=== PATIENT | male | born 1950 | race Caucasian/White ===

== ENCOUNTER 2017-10-24 10:29 | Inpatient (IN) | payer MEDICARE, OTHER ==
--- NOTE | 2017-10-24 13:11 | CR ---
Chest 2V INDICATION: sob COMPARISON: 10/19/2017 FINDINGS: Two views. Infiltrate at the left lung base. Somewhat shallow inspiration. Heart size no rmal. No pleural effusions.
[2017-10-24] MEDS ORDERED: Albuterol 0.083% 2.5 MG/3 ML Neb Soln NEB ONE (14:15)
[2017-10-24] MEDS ORDERED: Sodium Chloride 0.9% 80 ML IV ONE (15:25)
[2017-10-24] MEDS ORDERED: Iopamidol 755 Mg/ML 100 ML Bottle IV SCH (15:30)
[2017-10-24] MEDS: Sodium Chloride 0.9% 10 ML Syringe FLUSH ONE ×2 (15:58→18:44)
--- NOTE | 2017-10-24 16:00 | EDM.PDOC ---
ED HPI GENERAL MEDICAL PROBLEM - General Chief Complaint: Cardiovascular Problem Stated Complaint: SHORTNESS OF BREATH Time Seen by Provider: 10/24/17 11:40 Source of Information: Reports: Patient History Limitations: Reports: No Limitations - History of Present Illness INITIAL COMMENTS - FREE TEXT/NARRATIVE: pt arrived with increased sob and alot of leg swelling. He was recently put on o2 at 1 liter. Onset: Gradual, Other ( His breathing has been getting worse. He has not had chest pain. ) Duration: Day(s):, Getting Worse Location: Reports: Chest Associated Symptoms: Reports: Cough, Shortness of Breath, Other ( Increased ankle swelling. ) Generalized Pain Score (Numeric/FACES): 9 - Related Data Allergies Allergy/AdvReac Type Severity Reaction Status Date / Time No Known Allergies Allergy Verified 10/24/17 11:55 Home Meds: Home Meds Aspirin [Adult Low Dose Aspirin EC] 81 mg PO DAILY 08/03/15 [History] Cholecalciferol (Vitamin D3) [Vitamin D] 2,000 unit PO DAILY 08/03/15 [History] Lisinopril 40 mg PO DAILY 08/03/15 [History] amLODIPine [Norvasc] 5 mg PO DAILY 08/03/15 [History] glipiZIDE [Glipizide] 10 mg PO BID 08/03/15 [History] metFORMIN [Glucophage XR] 1,000 mg PO BID 08/03/15 [History] Carvedilol [Coreg] 6.25 mg PO BID 06/30/16 [History] Clopidogrel [Plavix] 75 mg PO DAILY 06/30/16 [History] Furosemide [Lasix] 20 mg PO DAILY 06/30/16 [History] atorvaSTATin [Lipitor] 40 mg PO BEDTIME 06/30/16 [History] Past Medical History Cardiovascular History: Reports: Hypertension Endocrine/Metabolic History: Reports: Diabetes, Type II Hematologic History: Reports: Other (See Below) Other Hematologic History: Vitamin D definiency Dermatologic History: Reports: Psoriasis - Past Surgical History Musculoskeletal Surgical History: Reports: Arthroscopic Knee Social & Family History - Tobacco Use Smoking Status *Q: Unknown Ever Smoked ED ROS GENERAL - Review of Systems Review Of Systems: See Below Constitutional: Reports: No Symptoms HEENT: Reports: No Symptoms Respiratory: Reports: Shortness of Breath, Cough, Other ( increass ankle swelling. ) Cardiovascular: Reports: No Symptoms Endocrine: Reports: No Symptoms GI/Abdominal: Reports: No Symptoms : Reports: No Symptoms Musculoskeletal: Reports: No Symptoms ED EXAM, GENERAL - Physical Exam Exam: See Below Free Text/Narrative:: pt has had progressive sob and has noted ankle swelling. He has no leg tendernes. Exam Limited By: Respiratory Distress General Appearance: Moderate Distress Ears: Normal TMs Nose: Normal Inspection Throat/Mouth: Normal Inspection Head: Atraumatic Neck: Normal Inspection Respiratory/Chest: Decreased Breath Sounds, Rales Cardiovascular: Regular Rate, Rhythm GI/Abdominal: Soft, Non-Tender (Male) Exam: Deferred Rectal (Males) Exam: Deferred Back Exam: Normal Inspection Extremities: Redness, Other ( edema bilateral) Neurological: Alert, Oriented, Normal Cognition Psychiatric: Normal Affect Course - Vital Signs Last Recorded V/S: Last Vital Signs Temp 36.4 C 10/24/17 11:50 Pulse 77 10/24/17 16:40 Resp 13 10/24/17 16:40 BP 143/73 H 10/24/17 16:40 Pulse Ox 87 L 10/24/17 16:40 - Orders/Labs/Meds Orders: Active Orders 24 hr Category Date Time Status EKG Documentation Completion [RC] ASDIRECTED Care 10/24/17 11:31 Active Wren Catheter Insertion [Insert Urinary Catheter] [OM. Care 10/24/17 13:00 Ordered PC] Q24H RT Aerosol Therapy [RC] ASDIRECTED Care 10/24/17 14:16 Active Urinary Catheter Assessment [RC] ASDIRECTED Care 10/24/17 12:54 Active Ang Chest [CT] Stat Exams 10/24/17 15:08 Taken UA W/MICROSCOPIC [URIN] Urgent Lab 10/24/17 12:03 Ordered Iopamidol [Isovue-370 (76%)] Med 10/24/17 15:30 Active 85 ml IV . DIRECTED EKG 12 Lead [EK] Routine Ther 10/24/17 11:31 Ordered Medication Orders Iopamidol (Isovue-370 (76%)) 85 ml IV . DIRECTED NOEMY Stop: 10/24/17 23:00 Last Admin: 10/24/17 15:58 Dose: 85 ml Labs: Laboratory Tests 10/24/17 10/24/17 10/24/17 Range/Units 11:47 11:47 12:03 WBC 8.8 (4.5-11.0) K/uL RBC 4.85 (4.30-5.90) M/uL Hgb 15.2 H (12.0-15.0) g/dL Hct 46.9 (40.0-54.0) % MCV 97 (80-98) fL MCH 31 (27-31) pg MCHC 32 (32-36) % Plt Count 226 (150-400) K/uL Neut % (Auto) 72 H (36-66) % Lymph % (Auto) 14 L (24-44) % [place] % (Auto) 10 H (2-6) % Eos % (Auto) 4 (2-4) % Baso % (Auto) 1 (0-1) % Puncture Site ABG pH (7.350-7.450) ABG pCO2 (35.0-42.0) mmHg ABG pO2 (75.0-100.0) mmHg ABG HCO3 (22.0-26.0) mmol/L ABG Total CO2 (23.0-27.0) mmol/L ABG O2 Saturation (95.0-98.0) % ABG O2 Content (15.0-23.0) %vol ABG Base Excess mm/L ABG Hemoglobin (13.5-18.0) g/dL ABG Oxyhemoglobin % ABG Carboxyhemoglobin (0.0-1.6) % ABG Methemoglobin % Morris Test O2 Delivery Device Oxygen Flow Rate L Sodium 138 L (140-148) mmol/L Potassium 4.2 (3.6-5.2) mmol/L Chloride 93 L (100-108) mmol/L Carbon Dioxide 42 H (21-32) mmol/L Anion Gap 7.2 (5.0-14.0) mmol/L BUN 15 D (7-18) mg/dL Creatinine 0.9 (0.8-1.3) mg/dL Est Cr Clr Drug Dosing 78.56 mL/min Estimated GFR (MDRD) > 60 (>60) Glucose 184 H (74-106) mg/dL Calcium 9.2 D (8.5-10.1) mg/dL Total Bilirubin 0.7 (0.2-1.0) mg/dL AST 18 (15-37) U/L ALT 27 (12-78) U/L Alkaline Phosphatase 108 (46-116) U/L NT-Pro-B Natriuret Pep 65 (5-125) pg/mL Total Protein 7.3 (6.4-8.2) g/dL Albumin 3.8 (3.4-5.0) g/dL Globulin 3.5 (2.3-3.5) g/dL Albumin/Globulin Ratio 1.1 L (1.2-2.2) TSH, Ultra Sensitive (0.358-3.740) uIU/mL Urine Color Yellow Urine Appearance Cloudy Urine pH 9.0 H (4.5-8.0) Ur Specific [place] 1.015 (1.008-1.030) Urine Protein Negative (NEGATIVE) mg/dL Urine Glucose (UA) 50 H (NEGATIVE) mg/dL Urine Ketones Negative (NEGATIVE) mg/dL Urine Occult Blood Negative (NEGATIVE) Urine Nitrite Negative (NEGAITVE) Urine Bilirubin Negative (NEGATIVE) Urine Urobilinogen Normal (NORMAL) mg/dL Ur Leukocyte Esterase Negative (NEGATIVE) Urine RBC Not seen (0-5) Urine WBC Not seen (0-5) Ur Epithelial Cells Not seen Amorphous Sediment Many Urine Bacteria Not seen Urine Mucus Not seen 10/24/17 10/24/17 Range/Units 12:51 13:43 WBC (4.5-11.0) K/uL RBC (4.30-5.90) M/uL Hgb (12.0-15.0) g/dL Hct (40.0-54.0) % MCV (80-98) fL MCH (27-31) pg MCHC (32-36) % Plt Count (150-400) K/uL Neut % (Auto) (36-66) % Lymph % (Auto) (24-44) % [place] % (Auto) (2-6) % Eos % (Auto) (2-4) % Baso % (Auto) (0-1) % Puncture Site Lt radial ABG pH 7.396 (7.350-7.450) ABG pCO2 66.4 H (35.0-42.0) mmHg ABG pO2 67.0 L (75.0-100.0) mmHg ABG HCO3 39.9 H (22.0-26.0) mmol/L ABG Total CO2 34.6 H (23.0-27.0) mmol/L ABG O2 Saturation 92.2 L (95.0-98.0) % ABG O2 Content 19.6 (15.0-23.0) %vol ABG Base Excess 11.9 mm/L ABG Hemoglobin 15.4 (13.5-18.0) g/dL ABG Oxyhemoglobin 90.5 % ABG Carboxyhemoglobin 1.2 (0.0-1.6) % ABG Methemoglobin 0.6 % Morris Test Passed O2 Delivery Device Nasal cannula Oxygen Flow Rate 2 L Sodium (140-148) mmol/L Potassium (3.6-5.2) mmol/L Chloride (100-108) mmol/L Carbon Dioxide (21-32) mmol/L Anion Gap (5.0-14.0) mmol/L BUN (7-18) mg/dL Creatinine (0.8-1.3) mg/dL Est Cr Clr Drug Dosing mL/min Estimated GFR (MDRD) (>60) Glucose (74-106) mg/dL Calcium (8.5-10.1) mg/dL Total Bilirubin (0.2-1.0) mg/dL AST (15-37) U/L ALT (12-78) U/L Alkaline Phosphatase (46-116) U/L NT-Pro-B Natriuret Pep (5-125) pg/mL Total Protein (6.4-8.2) g/dL Albumin (3.4-5.0) g/dL Globulin (2.3-3.5) g/dL Albumin/Globulin Ratio (1.2-2.2) TSH, Ultra Sensitive 3.827 H (0.358-3.740) uIU/mL Urine Color Urine Appearance Urine pH (4.5-8.0) Ur Specific [place] (1.008-1.030) Urine Protein (NEGATIVE) mg/dL Urine Glucose (UA) (NEGATIVE) mg/dL Urine Ketones (NEGATIVE) mg/dL Urine Occult Blood (NEGATIVE) Urine Nitrite (NEGAITVE) Urine Bilirubin (NEGATIVE) Urine Urobilinogen (NORMAL) mg/dL Ur Leukocyte Esterase (NEGATIVE) Urine RBC (0-5) Urine WBC (0-5) Ur Epithelial Cells Amorphous Sediment Urine Bacteria Urine Mucus Meds: Medications Generic Name Dose Route Start Last Admin Trade Name Freq PRN Reason Stop Dose Admin Iopamidol 85 ml 10/24/17 15:30 10/24/17 15:58 Isovue-370 (76%) IV 10/24/17 23:00 85 ml . DIRECTED NOEMY Administration Discontinued Medications Generic Name Dose Route Start Last Admin Trade Name [place] PRN Reason Stop Dose Admin Albuterol 2.5 mg 10/24/17 14:15 10/24/17 15:07 Proventil Neb Soln NEB 10/24/17 14:16 2.5 mg ONETIME ONE Administration Sodium Chloride 80 mls @ 3.5 mls/sec 10/24/17 15:25 10/24/17 15:58 Normal Saline IV 10/24/17 15:26 3.5 mls/sec ONETIME ONE Administration Sodium Chloride 10 ml 10/24/17 15:25 10/24/17 15:58 Saline Flush FLUSH 10/24/17 15:26 10 ml ONETIME ONE Administration - Re-Assessments/Exams Free Text/Narrative Re-Assessment/Exam: 10/24/17 17:18 bnp is normal. Chest xray show possible infiltrates particularly on the left. A cat scan of the chest was done which showed the infiltrates but no clots present. Departure - Departure Time of Disposition: 17:20 Disposition: Admitted As Inpatient 65 Condition: Fair Clinical Impression: Bilateral pneumonia, Fluid retention, Urinary retention Referrals: Shreya Ventura PA [Primary Care Provider] - Forms: ED Department Discharge Care Plan Goals: admit to Dr justin. - My Orders Last 24 Hours: My Active Orders 10/24/17 11:31 EKG Documentation Completion [RC] ASDIRECTED EKG 12 Lead [EK] Routine 10/24/17 12:03 UA W/MICROSCOPIC [URIN] Urgent 10/24/17 12:54 Urinary Catheter Assessment [RC] ASDIRECTED 10/24/17 13:00 Wren Catheter Insertion [Insert Urinary Catheter] [OM.PC] Q24H 10/24/17 14:16 RT Aerosol Therapy [RC] ASDIRECTED 10/24/17 15:08 Ang Chest [CT] Stat 10/24/17 15:30 Iopamidol [Isovue-370 (76%)] 85 ml IV . DIRECTED - Assessment/Plan Last 24 Hours: My Active Orders 10/24/17 11:31 EKG Documentation Completion [RC] ASDIRECTED EKG 12 Lead [EK] Routine 10/24/17 12:03 UA W/MICROSCOPIC [URIN] Urgent 10/24/17 12:54 Urinary Catheter Assessment [RC] ASDIRECTED 10/24/17 13:00 Wren Catheter Insertion [Insert Urinary Catheter] [OM.PC] Q24H 10/24/17 14:16 RT Aerosol Therapy [RC] ASDIRECTED 10/24/17 15:08 Ang Chest [CT] Stat 10/24/17 15:30 Iopamidol [Isovue-370 (76%)] 85 ml IV . DIRECTED
[2017-10-24] MEDS ORDERED: Furosemide 40 MG/4 ML VIAL IVPUSH ONE (17:44)
--- NOTE | 2017-10-24 17:58 | PCM.HP ---
H&P History of Present Illness - General Date of Service: 10/24/17 Admit Problem/Dx: Admission Diagnosis/Problem Admission Diagnosis/Problem Systolic CHF with reduced left ventricular function, NYHA class 2 Source of Information: Patient, Provider History Limitations: Reports: No Limitations - History of Present Illness Initial Comments - Free Text/Narative: Timi presents to the ER today with 6 weeks of slowly progressive weight gain and shortness of breath with a more rapid decompensation over the last several days. He reports approximately a 20 pound weight gain over the past several weeks. He has become more and more short of breath, especially with activity. Last week he was started on supplemental oxygen after he was noted to be hypoxic at his clinic visit. He does not report orthopnea but he does sleep in a chair. He has noticed significant lower extremity edema which has progressed over the past 6 weeks and especially the past few days. He has bloating in his abdomen and early satiety. He reports that he has significantly reduced his sodium and alcohol intake without any improvement in the symptoms. He has not had any fevers. Diabetes has been well controlled per his report. He was seen in the clinic last week and the weight gain and hypoxia was noted. I will this time his furosemide was increased slightly but he has not had any improvement and has actually gotten worse since that time. Examination in the emergency room today and was suggestive of congestive heart failure. He is hypoxic and requiring supplemental oxygen. He will need admission for parenteral diuresis and additional workup including echocardiogram. He had a Wren catheter placed for acute urinary retention. Generalized Pain Score (Numeric/FACES): 9 - Related Data Allergies/Adverse Reactions: Allergies Allergy/AdvReac Type Severity Reaction Status Date / Time No Known Allergies Allergy Verified 10/24/17 11:55 Home Medications: Home Meds Aspirin [Adult Low Dose Aspirin EC] 81 mg PO DAILY 08/03/15 [History] Lisinopril 40 mg PO DAILY 08/03/15 [History] amLODIPine [Norvasc] 5 mg PO DAILY 08/03/15 [History] glipiZIDE [Glipizide] 20 mg PO BID 08/03/15 [History] metFORMIN [Glucophage XR] 1,000 mg PO BID 08/03/15 [History] Carvedilol [Coreg] 6.25 mg PO BID 06/30/16 [History] Clopidogrel [Plavix] 75 mg PO DAILY 06/30/16 [History] Furosemide [Lasix] 60 mg PO DAILY 06/30/16 [History] atorvaSTATin [Lipitor] 40 mg PO DAILY 06/30/16 [History] Past Medical History Cardiovascular History: Reports: Hypertension Endocrine/Metabolic History: Reports: Diabetes, Type II Hematologic History: Reports: Other (See Below) Other Hematologic History: Vitamin D definiency Dermatologic History: Reports: Psoriasis - Past Surgical History Musculoskeletal Surgical History: Reports: Arthroscopic Knee Social & Family History - Family History Oncologic: Reports: Lung (father) - Tobacco Use Smoking Status *Q: Former Smoker Years of Tobacco use: 35 Used Tobacco, but Quit: Yes Month/Year Tobacco Last Used: 10 years ago - Alcohol Use Alcohol Use History: Yes Days Per Week of Alcohol Use: 3 H&P Review of Systems - Review of Systems: Review Of Systems: See Below Free Text/Narrative: A complete 12 point review of systems was obtained. Pertinent positives and negatives are noted in the history of present illness. All other systems were reviewed and were negative except as noted. Exam - Exam Exam: See Below - Vital Signs Vital Signs: Last Vital Signs Temp 36.4 C 10/24/17 11:50 Pulse 80 10/24/17 17:33 Resp 18 10/24/17 17:33 BP 159/62 H 10/24/17 17:33 Pulse Ox 90 L 10/24/17 17:33 Weight: 117.934 kg - Exam Quality Assessment: Supplemental Oxygen General: Alert, Oriented, Cooperative. No: Mild Distress HEENT: Conjunctiva Clear, Mucosa Moist & [place]. No: Scleral Icterus Neck: Supple, Trachea Midline, JVD. No: Lymphadenopathy Lungs: Normal Respiratory Effort, Decreased Breath Sounds (both bases), Crackles (few both bases) Cardiovascular: Regular Rate, Regular Rhythm. No: Systolic Murmur, Gallop/S3 GI/Abdominal Exam: Normal Bowel Sounds, Soft, Non-Tender, No Mass, Distended Back Exam: Normal Inspection, Full Range of Motion Extremities: Pedal Edema (pitting edema to the knee bilaterally, right > left ) . No: Increased Warmth Skin: Warm, Dry, Rash (mild venous stasis right anterior leg ) Neuro Extensive - Mental Status: Alert, Oriented x3, Nl Response to Commands Neuro Extensive - Motor, Sensory, Reflexes: CN II-XII Intact. No: Dysarthria, Abnormal Motor, Tremor Psychiatric: Alert, Normal Affect - Patient Data Lab Results Last 24 hrs: Laboratory Results - last 24 hr 10/24/17 10/24/17 10/24/17 Range/Units 11:47 11:47 12:03 WBC 8.8 (4.5-11.0) K/uL RBC 4.85 (4.30-5.90) M/uL Hgb 15.2 H (12.0-15.0) g/dL Hct 46.9 (40.0-54.0) % MCV 97 (80-98) fL MCH 31 (27-31) pg MCHC 32 (32-36) % Plt Count 226 (150-400) K/uL Neut % (Auto) 72 H (36-66) % Lymph % (Auto) 14 L (24-44) % [place] % (Auto) 10 H (2-6) % Eos % (Auto) 4 (2-4) % Baso % (Auto) 1 (0-1) % Puncture Site ABG pH (7.350-7.450) ABG pCO2 (35.0-42.0) mmHg ABG pO2 (75.0-100.0) mmHg ABG HCO3 (22.0-26.0) mmol/L ABG Total CO2 (23.0-27.0) mmol/L ABG O2 Saturation (95.0-98.0) % ABG O2 Content (15.0-23.0) %vol ABG Base Excess mm/L ABG Hemoglobin (13.5-18.0) g/dL ABG Oxyhemoglobin % ABG Carboxyhemoglobin (0.0-1.6) % ABG Methemoglobin % Morris Test O2 Delivery Device Oxygen Flow Rate L Sodium 138 L (140-148) mmol/L Potassium 4.2 (3.6-5.2) mmol/L Chloride 93 L (100-108) mmol/L Carbon Dioxide 42 H (21-32) mmol/L Anion Gap 7.2 (5.0-14.0) mmol/L BUN 15 D (7-18) mg/dL Creatinine 0.9 (0.8-1.3) mg/dL Est Cr Clr Drug Dosing 78.56 mL/min Estimated GFR (MDRD) > 60 (>60) Glucose 184 H (74-106) mg/dL Calcium 9.2 D (8.5-10.1) mg/dL Total Bilirubin 0.7 (0.2-1.0) mg/dL AST 18 (15-37) U/L ALT 27 (12-78) U/L Alkaline Phosphatase 108 (46-116) U/L NT-Pro-B Natriuret Pep 65 (5-125) pg/mL Total Protein 7.3 (6.4-8.2) g/dL Albumin 3.8 (3.4-5.0) g/dL Globulin 3.5 (2.3-3.5) g/dL Albumin/Globulin Ratio 1.1 L (1.2-2.2) TSH, Ultra Sensitive (0.358-3.740) uIU/mL Urine Color Yellow Urine Appearance Cloudy Urine pH 9.0 H (4.5-8.0) Ur Specific [place] 1.015 (1.008-1.030) Urine Protein Negative (NEGATIVE) mg/dL Urine Glucose (UA) 50 H (NEGATIVE) mg/dL Urine Ketones Negative (NEGATIVE) mg/dL Urine Occult Blood Negative (NEGATIVE) Urine Nitrite Negative (NEGAITVE) Urine Bilirubin Negative (NEGATIVE) Urine Urobilinogen Normal (NORMAL) mg/dL Ur Leukocyte Esterase Negative (NEGATIVE) Urine RBC Not seen (0-5) Urine WBC Not seen (0-5) Ur Epithelial Cells Not seen Amorphous Sediment Many Urine Bacteria Not seen Urine Mucus Not seen 10/24/17 10/24/17 Range/Units 12:51 13:43 WBC (4.5-11.0) K/uL RBC (4.30-5.90) M/uL Hgb (12.0-15.0) g/dL Hct (40.0-54.0) % MCV (80-98) fL MCH (27-31) pg MCHC (32-36) % Plt Count (150-400) K/uL Neut % (Auto) (36-66) % Lymph % (Auto) (24-44) % [place] % (Auto) (2-6) % Eos % (Auto) (2-4) % Baso % (Auto) (0-1) % Puncture Site Lt radial ABG pH 7.396 (7.350-7.450) ABG pCO2 66.4 H (35.0-42.0) mmHg ABG pO2 67.0 L (75.0-100.0) mmHg ABG HCO3 39.9 H (22.0-26.0) mmol/L ABG Total CO2 34.6 H (23.0-27.0) mmol/L ABG O2 Saturation 92.2 L (95.0-98.0) % ABG O2 Content 19.6 (15.0-23.0) %vol ABG Base Excess 11.9 mm/L ABG Hemoglobin 15.4 (13.5-18.0) g/dL ABG Oxyhemoglobin 90.5 % ABG Carboxyhemoglobin 1.2 (0.0-1.6) % ABG Methemoglobin 0.6 % Morris Test Passed O2 Delivery Device Nasal cannula Oxygen Flow Rate 2 L Sodium (140-148) mmol/L Potassium (3.6-5.2) mmol/L Chloride (100-108) mmol/L Carbon Dioxide (21-32) mmol/L Anion Gap (5.0-14.0) mmol/L BUN (7-18) mg/dL Creatinine (0.8-1.3) mg/dL Est Cr Clr Drug Dosing mL/min Estimated GFR (MDRD) (>60) Glucose (74-106) mg/dL Calcium (8.5-10.1) mg/dL Total Bilirubin (0.2-1.0) mg/dL AST (15-37) U/L ALT (12-78) U/L Alkaline Phosphatase (46-116) U/L NT-Pro-B Natriuret Pep (5-125) pg/mL Total Protein (6.4-8.2) g/dL Albumin (3.4-5.0) g/dL Globulin (2.3-3.5) g/dL Albumin/Globulin Ratio (1.2-2.2) TSH, Ultra Sensitive 3.827 H (0.358-3.740) uIU/mL Urine Color Urine Appearance Urine pH (4.5-8.0) Ur Specific [place] (1.008-1.030) Urine Protein (NEGATIVE) mg/dL Urine Glucose (UA) (NEGATIVE) mg/dL Urine Ketones (NEGATIVE) mg/dL Urine Occult Blood (NEGATIVE) Urine Nitrite (NEGAITVE) Urine Bilirubin (NEGATIVE) Urine Urobilinogen (NORMAL) mg/dL Ur Leukocyte Esterase (NEGATIVE) Urine RBC (0-5) Urine WBC (0-5) Ur Epithelial Cells Amorphous Sediment Urine Bacteria Urine Mucus Result Diagrams: 10/24/17 11:47 10/24/17 11:47 Imaging Impressions Last 24 hrs: CXR - images personally reviewed - plump pulmonary vasculature but no effusions. No mass or infiltrate. Probable bibasilar atelectasis. CT chest - no PE. bilateral atelectasis. No effusion. Engorged pulmonary vasculature. No mass. *Q Meaningful Use (ADM) - VTE Risk Assess *Q Each Risk Factor Represents 1 Point: Swollen Legs, Current, Obesity ( BMI > 25 kg/m2), Congestive heart failure (CHF), Abnormal Pulmonary Function (COPD) Total Score 1 Point Risk Factors: 4 Each Risk Factor Represents 2 Points: Age 60 - 74 Years Total Score 2 Point Risk Factors: 2 Each Risk Factor Represents 3 Points: None Total Score 3 Point Risk Factors: 0 Each Risk Factor Represents 5 Points: None Total Score 5 Point Risk Factors: 0 Venous Thromboembolism Risk Factor Score *Q: 6 - Problem List (1) Combined congestive systolic and diastolic heart failure SNOMED Code(s): 00108649, 690071736 ICD Code: I50.40 - UNSP COMBINED SYSTOLIC AND DIASTOLIC (CONGESTIVE) HRT FAIL Status: Acute Current Visit: Yes Qualifiers: Heart failure chronicity: acute on chronic Qualified Code(s): I50.43 - Acute on chronic combined systolic (congestive) and diastolic (congestive) heart failure (2) Urinary retention SNOMED Code(s): 977651950 ICD Code: R33.9 - RETENTION OF URINE, UNSPECIFIED Status: Acute Current Visit: Yes (3) Diabetes mellitus type II, controlled SNOMED Code(s): 46071152 ICD Code: E11.9 - TYPE 2 DIABETES MELLITUS WITHOUT COMPLICATIONS Status: Chronic Current Visit: Yes Qualifiers: Diabetes mellitus manager intermediate insulin use: without group home use Diabetes mellitus complication status: with unspecified complications Qualified Code(s) : E11.8 - Type 2 diabetes mellitus with unspecified complications (4) Obesity (BMI 30-39.9) SNOMED Code(s): 079235680, 883422166 ICD Code: E66.9 - OBESITY, UNSPECIFIED Status: Chronic Current Visit: Yes (5) Coronary artery disease SNOMED Code(s): 32315810 ICD Code: I25.10 - ATHSCL HEART DISEASE OF [place] CORONARY ARTERY W/O ANG PCTRS Status: Chronic Current Visit: Yes Qualifiers: Coronary Disease-Associated Artery/Lesion type: [place] artery [place] vs. transplanted heart: [place] heart Associated angina: without angina Qualified Code(s): I25.10 - Atherosclerotic heart disease of [place] coronary artery without angina pectoris Problem List Initiated/Reviewed/Updated: Yes Orders Last 24hrs: Active Orders 24 hr Category Date Time Status Patient Status Manage Transfer [TRANSFER] Routine ADT 10/24/17 17:45 Ordered EKG Documentation Completion [RC] ASDIRECTED Care 10/24/17 11:31 Active Wren Catheter Insertion [Insert Urinary Catheter] [OM. Care 10/24/17 13:00 Ordered PC] Q24H RT Aerosol Therapy [RC] ASDIRECTED Care 10/24/17 14:16 Active Urinary Catheter Assessment [RC] ASDIRECTED Care 10/24/17 12:54 Active Ang Chest [CT] Stat Exams 10/24/17 15:08 Taken UA W/MICROSCOPIC [URIN] Urgent Lab 10/24/17 12:03 Ordered Iopamidol [Isovue-370 (76%)] Med 10/24/17 15:30 Active 85 ml IV . DIRECTED Resuscitation Status Routine Resus Stat 10/24/17 17:48 Ordered EKG 12 Lead [EK] Routine Ther 10/24/17 11:31 Ordered Medication Orders Iopamidol (Isovue-370 (76%)) 85 ml IV . 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 Slow progression in symptoms with more rapid decline for the past few days. He is hypoxic and has obvious volume overload. He is not getting better with increased oral diuretics. -Furosemide 80 mg IV 1 now -Strict monitoring of intake and output -Continue beta noble and BASSEM inhibitor -Echocardiogram when available Acute urinary retention - more than 700 mL of urine noted on bladder scanning. Wren catheter has been replaced. Patient did not have significant symptoms with the urinary retention. -Continue Wren catheter, consider trial of voiding in a couple of days Compensated respiratory acidosis - PCO2 of 60 with a bicarbonate of nearly 40. PH is normal. Probably related to congestive heart failure but COPD could be contributing with nearly 40 pack/year history of smoking. -Repeat labs in the morning Coronary artery disease - non-ST elevation acute coronary syndrome 2 years ago requiring stent placement. No anginal symptoms since that time. -Continue medical management including beta noble, BASSEM inhibitor and dual antiplatelet therapy Diabetes mellitus type 2 - controlled with oral medications. Most recent hemoglobin A1c was 8. -Continue home medications Maintenance issues - - DVT prophylaxis - MAGNUS stockings - GI prophylaxis - not indicated - Nutrition - low sodium - Wren catheter - placed in the emergency room with acute urinary retention CODE STATUS - DNR/DNI Admission justification - This patient will be admitted for inpatient services and is medically appropriate meeting medical necessity for inpatient admission as outlined in my documentation. I reasonably expect the patient will require inpatient services that span a period time over 2 midnights. I reasonably expect this patient to be discharged or transferred within 96 hours [facility]. Disposition - anticipate discharge home after the hospital stay Primary care physician - Shreya Moya, [facility] [place] Hemphill M.D.
[2017-10-24] MEDS ORDERED: Albuterol 0.083% 2.5 MG/3 ML Neb Soln NEB PRN (18:16)
[2017-10-24] MEDS ORDERED: Polyethylene Glycol 3350 Powder 17 GM Packet PO PRN (18:16)
[2017-10-24] MEDS ORDERED: Ondansetron 4 MG Tab.DIS PO PRN (18:16)
[2017-10-24] MEDS ORDERED: Carvedilol 6.25 MG Tab PO SCH (21:00)
[2017-10-24] MEDS: metFORMIN 500 MG Tab.ER PO SCH (21:29)
[2017-10-24] MEDS ORDERED: glipiZIDE 5 MG Tab ONE (21:35)
[2017-10-24] MEDS: glipiZIDE 5 MG Tab PO SCH (21:36)
[2017-10-25] MEDS ORDERED: Furosemide 40 MG/4 ML VIAL IVPUSH ONE ×2 (08:30→16:00)
[2017-10-25] MEDS ORDERED: Furosemide 40 MG, Furosemide 20 MG IV ONE ×2 (09:00)
[2017-10-25] MEDS: Clopidogrel 75 MG Tab PO SCH (09:16)
[2017-10-25] MEDS: glipiZIDE 5 MG Tab PO SCH ×2 (09:16→17:27)
[2017-10-25] MEDS: atorvaSTATin 20 MG Tab PO SCH (09:17)
[2017-10-25] MEDS: Lisinopril 20 MG Tab PO SCH (09:17)
[2017-10-25] MEDS: metFORMIN 500 MG Tab.ER PO SCH ×2 (09:17→21:24)
[2017-10-25] MEDS: Aspirin 81 MG Tab.EC PO SCH (09:18)
[2017-10-25] MEDS: amLODIPine 5 MG Tab PO SCH (09:18)
[2017-10-25] MEDS: Sodium Chloride 0.9% 10 ML Syringe FLUSH ONE (09:23)
[2017-10-25] MEDS: Acetaminophen 325 MG Tab PO PRN (11:53)
--- NOTE | 2017-10-25 12:14 | PCM.PN ---
- General Info Date of Service: 10/25/17 Functional Status: Reports: Pain Controlled, Tolerating Diet - Review of Systems General: Denies: Fever Pulmonary: Reports: Shortness of Breath Cardiovascular: Denies: Chest Pain Systems Review Comment:: No acute events overnight. Excellent response to diuresis with some improvements in his dyspnea as well as improvement in his lower extremity edema. Still requiring supplemental oxygen. Weight is still significantly above baseline but better than admission. Tolerating diet. Clinically feeling better. Kidney function stable. - Patient Data Vitals - Most Recent: Last Vital Signs Temp 36.3 C 10/25/17 11:00 Pulse 83 10/25/17 11:00 Resp 20 10/25/17 11:00 BP 105/55 L 10/25/17 11:00 Pulse Ox 93 L 10/25/17 11:00 Weight - Most Recent: 113.398 kg I&O - Last 24 Hours: Intake & Output 10/24/17 10/25/17 10/25/17 22:59 06:59 14:59 Intake Total 120 Output Total 2550 550 1000 Balance -2550 -430 -1000 Lab Results Last 24 Hours: Laboratory Results - last 24 hr 10/24/17 10/24/17 10/24/17 Range/Units 11:47 12:03 12:51 WBC (4.5-11.0) K/uL RBC (4.30-5.90) M/uL Hgb (12.0-15.0) g/dL Hct (40.0-54.0) % MCV (80-98) fL MCH (27-31) pg MCHC (32-36) % Plt Count (150-400) K/uL Puncture Site ABG pH (7.350-7.450) ABG pCO2 (35.0-42.0) mmHg ABG pO2 (75.0-100.0) mmHg ABG HCO3 (22.0-26.0) mmol/L ABG Total CO2 (23.0-27.0) mmol/L ABG O2 Saturation (95.0-98.0) % ABG O2 Content (15.0-23.0) %vol ABG Base Excess mm/L ABG Hemoglobin (13.5-18.0) g/dL ABG Oxyhemoglobin % ABG Carboxyhemoglobin (0.0-1.6) % ABG Methemoglobin % Morris Test O2 Delivery Device Oxygen Flow Rate L Sodium 138 L (140-148) mmol/L Potassium 4.2 (3.6-5.2) mmol/L Chloride 93 L (100-108) mmol/L Carbon Dioxide 42 H (21-32) mmol/L Anion Gap 7.2 (5.0-14.0) mmol/L BUN 15 D (7-18) mg/dL Creatinine 0.9 (0.8-1.3) mg/dL Est Cr Clr Drug Dosing 78.56 mL/min Estimated GFR (MDRD) > 60 (>60) Glucose 184 H (74-106) mg/dL Calcium 9.2 D (8.5-10.1) mg/dL Magnesium (1.8-2.4) mg/dL Total Bilirubin 0.7 (0.2-1.0) mg/dL AST 18 (15-37) U/L ALT 27 (12-78) U/L Alkaline Phosphatase 108 (46-116) U/L NT-Pro-B Natriuret Pep 65 (5-125) pg/mL Total Protein 7.3 (6.4-8.2) g/dL Albumin 3.8 (3.4-5.0) g/dL Globulin 3.5 (2.3-3.5) g/dL Albumin/Globulin Ratio 1.1 L (1.2-2.2) TSH, Ultra Sensitive 3.827 H (0.358-3.740) uIU/mL Urine Color Yellow Urine Appearance Cloudy Urine pH 9.0 H (4.5-8.0) Ur Specific [place] 1.015 (1.008-1.030) Urine Protein Negative (NEGATIVE) mg/dL Urine Glucose (UA) 50 H (NEGATIVE) mg/dL Urine Ketones Negative (NEGATIVE) mg/dL Urine Occult Blood Negative (NEGATIVE) Urine Nitrite Negative (NEGAITVE) Urine Bilirubin Negative (NEGATIVE) Urine Urobilinogen Normal (NORMAL) mg/dL Ur Leukocyte Esterase Negative (NEGATIVE) Urine RBC Not seen (0-5) Urine WBC Not seen (0-5) Ur Epithelial Cells Not seen Amorphous Sediment Many Urine Bacteria Not seen Urine Mucus Not seen 10/24/17 10/25/17 10/25/17 Range/Units 13:43 06:00 06:00 WBC 10.1 (4.5-11.0) K/uL RBC 5.02 (4.30-5.90) M/uL Hgb 15.5 H (12.0-15.0) g/dL Hct 48.7 (40.0-54.0) % MCV 97 (80-98) fL MCH 31 (27-31) pg MCHC 32 (32-36) % Plt Count 212 (150-400) K/uL Puncture Site Lt radial ABG pH 7.396 (7.350-7.450) ABG pCO2 66.4 H (35.0-42.0) mmHg ABG pO2 67.0 L (75.0-100.0) mmHg ABG HCO3 39.9 H (22.0-26.0) mmol/L ABG Total CO2 34.6 H (23.0-27.0) mmol/L ABG O2 Saturation 92.2 L (95.0-98.0) % ABG O2 Content 19.6 (15.0-23.0) %vol ABG Base Excess 11.9 mm/L ABG Hemoglobin 15.4 (13.5-18.0) g/dL ABG Oxyhemoglobin 90.5 % ABG Carboxyhemoglobin 1.2 (0.0-1.6) % ABG Methemoglobin 0.6 % Morris Test Passed O2 Delivery Device Nasal cannula Oxygen Flow Rate 2 L Sodium 141 (140-148) mmol/L Potassium 4.0 (3.6-5.2) mmol/L Chloride 98 L (100-108) mmol/L Carbon Dioxide 40 H (21-32) mmol/L Anion Gap 7.0 (5.0-14.0) mmol/L BUN 15 (7-18) mg/dL Creatinine 0.8 (0.8-1.3) mg/dL Est Cr Clr Drug Dosing 88.38 mL/min Estimated GFR (MDRD) > 60 (>60) Glucose 183 H (74-106) mg/dL Calcium 8.6 (8.5-10.1) mg/dL Magnesium 2.1 (1.8-2.4) mg/dL Total Bilirubin (0.2-1.0) mg/dL AST (15-37) U/L ALT (12-78) U/L Alkaline Phosphatase (46-116) U/L NT-Pro-B Natriuret Pep (5-125) pg/mL Total Protein (6.4-8.2) g/dL Albumin (3.4-5.0) g/dL Globulin (2.3-3.5) g/dL Albumin/Globulin Ratio (1.2-2.2) TSH, Ultra Sensitive (0.358-3.740) uIU/mL Urine Color Urine Appearance Urine pH (4.5-8.0) Ur Specific [place] (1.008-1.030) Urine Protein (NEGATIVE) mg/dL Urine Glucose (UA) (NEGATIVE) mg/dL Urine Ketones (NEGATIVE) mg/dL Urine Occult Blood (NEGATIVE) Urine Nitrite (NEGAITVE) Urine Bilirubin (NEGATIVE) Urine Urobilinogen (NORMAL) mg/dL Ur Leukocyte Esterase (NEGATIVE) Urine RBC (0-5) Urine WBC (0-5) Ur Epithelial Cells Amorphous Sediment Urine Bacteria Urine Mucus Med Orders - Current: Current Medications Acetaminophen (Tylenol) 650 mg PO Q4H PRN PRN Reason: Pain (Mild 1-3)/fever Last Admin: 10/25/17 11:53 Dose: 650 mg Albuterol (Proventil Neb Soln) 2.5 mg NEB Q4H PRN PRN Reason: Shortness Of Breath/wheezing Amlodipine Besylate (Norvasc) 5 mg PO DAILY [facility] Last Admin: 10/25/17 09:18 Dose: 5 mg Aspirin (Halfprin) 81 mg PO DAILY [facility] Last Admin: 10/25/17 09:18 Dose: 81 mg Atorvastatin Calcium (Lipitor) 40 mg PO DAILY [facility] Last Admin: 10/25/17 09:17 Dose: 40 mg Carvedilol (Coreg) 6.25 mg PO BIDMEALS [facility] Clopidogrel Bisulfate (Plavix) 75 mg PO DAILY [facility] Last Admin: 10/25/17 09:16 Dose: 75 mg Glipizide (Glucotrol) 20 mg PO BIDAC [facility] Last Admin: 10/25/17 09:16 Dose: 20 mg Lisinopril (Prinivil) 40 mg PO DAILY [facility] Last Admin: 10/25/17 09:17 Dose: 40 mg Metformin HCl (Glucophage Xr) 1,000 mg PO BID [facility] Last Admin: 10/25/17 09:17 Dose: 1,000 mg Ondansetron HCl (Zofran Odt) 4 mg PO Q6H PRN PRN Reason: Nausea able to take PO Pneumococcal Polyvalent Vaccine (Pneumovax 23) 0.5 ml IM .ONCE ONE Stop: 10/25/17 14:01 Polyethylene Glycol (Miralax) 17 gm PO DAILY PRN PRN Reason: Constipation Senna/Docusate Sodium (Senna Plus) 1 tab PO BID PRN PRN Reason: Constipation Discontinued Medications Albuterol (Proventil Neb Soln) 2.5 mg NEB ONETIME ONE Stop: 10/24/17 14:16 Last Admin: 10/24/17 15:07 Dose: 2.5 mg Carvedilol (Coreg) 6.25 mg PO BID [facility] Last Admin: 10/24/17 20:54 Dose: 6.25 mg Furosemide (Lasix) 80 mg IVPUSH NOW ONE Stop: 10/24/17 17:45 Last Admin: 10/24/17 18:42 Dose: 80 mg Furosemide 40 mg/ Furosemide (20 mg) 60 mg IV ONETIME ONE Stop: 10/25/17 09:01 Last Admin: 10/25/17 09:19 Dose: 60 mg Glipizide (Glucotrol) Confirm Administered Dose 20 mg .ROUTE .STK-MED ONE Stop: 10/24/17 21:36 Last Admin: 10/24/17 21:38 Dose: Not Given Sodium Chloride (Normal Saline) 80 mls @ 3.5 mls/sec IV ONETIME ONE Stop: 10/24/17 15:26 Last Admin: 10/24/17 15:58 Dose: 3.5 mls/sec Iopamidol (Isovue-370 (76%)) 85 ml IV . DIRECTED NOEMY Stop: 10/24/17 23:00 Last Admin: 10/24/17 15:58 Dose: 85 ml Sodium Chloride (Saline Flush) 10 ml FLUSH ONETIME ONE Stop: 10/24/17 15:26 Last Admin: 10/25/17 09:23 Dose: 10 ml - Exam Quality Assessment: Supplemental Oxygen General: Alert, Oriented, Cooperative, No Acute Distress Neck: Supple Lungs: Clear to Auscultation, Normal Respiratory Effort, Decreased Breath Sounds (mild at bases) Cardiovascular: Regular Rate, Regular Rhythm, Gallops. 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 SNOMED Code(s): 99720629, 290351129 Code(s): I50.40 - UNSP COMBINED SYSTOLIC AND DIASTOLIC (CONGESTIVE) HRT FAIL Status: Acute Current Visit: Yes Qualifiers: Heart failure chronicity: acute on chronic Qualified Code(s): I50.43 - Acute on chronic combined systolic (congestive) and diastolic (congestive) heart failure (2) Urinary retention SNOMED Code(s): 257069352 Code(s): R33.9 - RETENTION OF URINE, UNSPECIFIED Status: Acute Current Visit: Yes (3) Diabetes mellitus type II, controlled SNOMED Code(s): 32998729 Code(s): E11.9 - TYPE 2 DIABETES MELLITUS WITHOUT COMPLICATIONS Status: Chronic Current Visit: Yes Qualifiers: Diabetes mellitus snf insulin use: without intermediate accountant use Diabetes mellitus complication status: with unspecified complications Qualified Code(s) : E11.8 - Type 2 diabetes mellitus with unspecified complications (4) Obesity (BMI 30-39.9) SNOMED Code(s): 255446980, 442583438 Code(s): E66.9 - OBESITY, UNSPECIFIED Status: Chronic Current Visit: Yes (5) Coronary artery disease SNOMED Code(s): 82452420 Code(s): I25.10 - ATHSCL HEART DISEASE OF [place] CORONARY ARTERY W/O ANG PCTRS Status: Chronic Current Visit: Yes Qualifiers: Coronary Disease-Associated Artery/Lesion type: [place] artery [place] vs. transplanted heart: [place] heart Associated angina: without angina Qualified Code(s): I25.10 - Atherosclerotic heart disease of [place] coronary artery without angina pectoris - Problem List Review Problem List Initiated/Reviewed/Updated: Yes - My Orders Last 24 Hours: My Active Orders 10/24/17 17:48 Resuscitation Status Routine 10/24/17 18:16 Patient Status [ADT] Routine Cardiac Education [RC] Click to Edit Intake and Output [RC] QSHIFT Notify Provider Vital Signs [RC] ASDIRECTED Oxygen Therapy [RC] PRN RT Aerosol Therapy [RC] ASDIRECTED Up With Assistance [RC] ASDIRECTED Vital Signs [RC] Q4H Acetaminophen [Tylenol] 650 mg PO Q4H PRN Albuterol [Proventil Neb Soln] 2.5 mg NEB Q4H PRN Docusate Sodium/Sennosides [Senna Plus] 1 tab PO BID PRN Ondansetron [Zofran ODT] 4 mg PO Q6H PRN Polyethylene Glycol 3350 [MiraLAX] 17 gm PO DAILY PRN Antiembolic Hose [OM.PC] Per Unit Routine CHF Questionnaire [COMM] Routine 10/24/17 21:00 metFORMIN [Glucophage XR] 1,000 mg PO BID 10/24/17 Dinner 2 Gram Sodium Diet [DIET] 10/25/17 07:00 Height and Weight [RC] 0500 10/25/17 07:30 glipiZIDE [Glucotrol] 20 mg PO BIDAC 10/25/17 09:00 Aspirin [Halfprin] 81 mg PO DAILY Clopidogrel [Plavix] 75 mg PO DAILY Lisinopril [Prinivil] 40 mg PO DAILY amLODIPine [Norvasc] 5 mg PO DAILY atorvaSTATin [Lipitor] 40 mg PO DAILY 10/25/17 14:00 Pneumococcal Polyvalent-23 Vac [Pneumovax 23] 0.5 ml IM .ONCE ONE 10/25/17 16:00 Furosemide [Lasix] 40 mg IVPUSH ONETIME ONE 10/25/17 17:00 Carvedilol [Coreg] 6.25 mg PO BIDMEALS 10/26/17 05:00 BASIC METABOLIC PANEL,BMP [CHEM] Timed 10/26/17 07:00 Echo Comp wo Cont [US] Routine 10/26/17 09:00 Furosemide [Lasix] 40 mg IVPUSH DAILY - Plan Plan:: ASSESSMENT AND PLAN - Acute decompensated combined systolic and diastolic congestive heart failure - excellent response to diuresis yesterday and clinically feeling better. Still has a fair amount of edema and extra water weight. Echocardiogram planned for tomorrow. -Furosemide 60 mg this morning and 40 mg this afternoon -Strict monitoring of intake and output -Continue beta noble and BSASEM inhibitor -Supplement oxygen as needed -Echocardiogram tomorrow Acute urinary retention - more than 700 mL of urine noted on bladder scanning. Wren catheter has been replaced. Patient did not have significant symptoms with the urinary retention. -Continue Wren catheter, consider trial of voiding in a couple of days Compensated respiratory acidosis - PCO2 of 60 with a bicarbonate of nearly 40. PH is normal. Probably related to congestive heart failure but COPD could be contributing with nearly 40 pack/year history of smoking. Bicarbonate level stable. -Repeat labs in the morning Coronary artery disease - No anginal symptoms since that time. -Continue medical management including beta noble, BASSEM inhibitor and dual antiplatelet therapy Diabetes mellitus type 2 - controlled with oral medications. Most recent hemoglobin A1c was 8. -Continue home medications Maintenance issues - - DVT prophylaxis - MAGNUS stockings - GI prophylaxis - not indicated - Nutrition - low sodium - Wren catheter - placed in the emergency room with acute urinary retention Disposition - anticipate discharge home after the hospital stay Primary care physician - Shreya Moya, [facility] [place] Hemph[place] M.D.
[2017-10-25] MEDS ORDERED: Pneumococcal Polyvalent-23 Vaccine 0.5 ML SDV IM ONE (14:00)
[2017-10-25] MEDS: Carvedilol 6.25 MG Tab PO SCH (17:28)
[2017-10-26] MEDS: glipiZIDE 5 MG Tab PO SCH ×2 (07:21→17:15)
[2017-10-26] MEDS: Carvedilol 6.25 MG Tab PO SCH ×2 (07:22→17:16)
[2017-10-26] MEDS ORDERED: Furosemide 40 MG/4 ML VIAL IVPUSH SCH (09:00)
[2017-10-26] MEDS: metFORMIN 500 MG Tab.ER PO SCH ×2 (09:46→20:48)
[2017-10-26] MEDS: Aspirin 81 MG Tab.EC PO SCH (09:46)
[2017-10-26] MEDS: atorvaSTATin 20 MG Tab PO SCH (09:51)
[2017-10-26] MEDS: Clopidogrel 75 MG Tab PO SCH (09:52)
[2017-10-26] MEDS: Lisinopril 20 MG Tab PO SCH (10:13)
[2017-10-26] MEDS: amLODIPine 5 MG Tab PO SCH (10:13)
[2017-10-26] MEDS: Furosemide 40 MG/4 ML VIAL IVPUSH SCH (10:14)
--- NOTE | 2017-10-26 12:36 | PCM.PN ---
- General Info Date of Service: 10/26/17 Functional Status: Reports: Pain Controlled, Tolerating Diet - Review of Systems General: Reports: Weakness Pulmonary: Reports: Shortness of Breath Cardiovascular: Reports: Edema Systems Review Comment:: there were no acute events overnight. Blood pressure was on the low side this morning and his antihypertensives were held. Not as good a response to diuresis yesterday and weight is stable. Clinically feels about the same as yesterday. Still short of breath with activity. Lower extremity edema has been improving. Echocardiogram completed this morning with interpretation pending. - Patient Data Vitals - Most Recent: Last Vital Signs Temp 36.1 C 10/26/17 06:50 Pulse 76 10/26/17 09:52 Resp 20 10/26/17 02:00 BP 90/49 L 10/26/17 10:14 Pulse Ox 95 10/26/17 09:52 Weight - Most Recent: 114.396 kg I&O - Last 24 Hours: Intake & Output 10/25/17 10/26/17 10/26/17 22:59 06:59 14:59 Intake Total 960 236 Output Total 250 350 Balance 710 -350 236 Lab Results Last 24 Hours: Laboratory Results - last 24 hr 10/26/17 Range/Units 05:00 Sodium 139 L (140-148) mmol/L Potassium 4.3 (3.6-5.2) mmol/L Chloride 98 L (100-108) mmol/L Carbon Dioxide 38 H (21-32) mmol/L Anion Gap 7.3 (5.0-14.0) mmol/L BUN 25 H D (7-18) mg/dL Creatinine 0.8 (0.8-1.3) mg/dL Est Cr Clr Drug Dosing 88.08 mL/min Estimated GFR (MDRD) > 60 (>60) Glucose 195 H (74-106) mg/dL Calcium 8.7 (8.5-10.1) mg/dL Med Orders - Current: Current Medications Acetaminophen (Tylenol) 650 mg PO Q4H PRN PRN Reason: Pain (Mild 1-3)/fever Last Admin: 10/25/17 11:53 Dose: 650 mg Albuterol (Proventil Neb Soln) 2.5 mg NEB Q4H PRN PRN Reason: Shortness Of Breath/wheezing Amlodipine Besylate (Norvasc) 5 mg PO DAILY [facility] Last Admin: 10/26/17 10:13 Dose: Not Given Aspirin (Halfprin) 81 mg PO DAILY [facility] Last Admin: 10/26/17 09:46 Dose: 81 mg Atorvastatin Calcium (Lipitor) 40 mg PO DAILY [facility] Last Admin: 10/26/17 09:51 Dose: 40 mg Carvedilol (Coreg) 6.25 mg PO BIDMEALS [facility] Last Admin: 10/26/17 07:22 Dose: 6.25 mg Clopidogrel Bisulfate (Plavix) 75 mg PO DAILY [facility] Last Admin: 10/26/17 09:52 Dose: 75 mg Furosemide (Lasix) 80 mg IVPUSH DAILY [facility] Last Admin: 10/26/17 10:14 Dose: 80 mg Glipizide (Glucotrol) 20 mg PO BIDAC [facility] Last Admin: 10/26/17 07:21 Dose: 20 mg Lisinopril (Prinivil) 40 mg PO DAILY [facility] Last Admin: 10/26/17 10:13 Dose: Not Given Metformin HCl (Glucophage Xr) 1,000 mg PO BID [facility] Last Admin: 10/26/17 09:46 Dose: 1,000 mg Ondansetron HCl (Zofran Odt) 4 mg PO Q6H PRN PRN Reason: Nausea able to take PO Polyethylene Glycol (Miralax) 17 gm PO DAILY PRN PRN Reason: Constipation Senna/Docusate Sodium (Senna Plus) 1 tab PO BID PRN PRN Reason: Constipation Discontinued Medications Albuterol (Proventil Neb Soln) 2.5 mg NEB ONETIME ONE Stop: 10/24/17 14:16 Last Admin: 10/24/17 15:07 Dose: 2.5 mg Carvedilol (Coreg) 6.25 mg PO BID [facility] Last Admin: 10/24/17 20:54 Dose: 6.25 mg Furosemide (Lasix) 80 mg IVPUSH NOW ONE Stop: 10/24/17 17:45 Last Admin: 10/24/17 18:42 Dose: 80 mg Furosemide 40 mg/ Furosemide (20 mg) 60 mg IV ONETIME ONE Stop: 10/25/17 09:01 Last Admin: 10/25/17 09:19 Dose: 60 mg Furosemide (Lasix) 40 mg IVPUSH DAILY [facility] Furosemide (Lasix) 40 mg IVPUSH ONETIME ONE Stop: 10/25/17 16:01 Last Admin: 10/25/17 16:33 Dose: 40 mg Glipizide (Glucotrol) Confirm Administered Dose 20 mg .ROUTE .STK-MED ONE Stop: 10/24/17 21:36 Last Admin: 10/24/17 21:38 Dose: Not Given Sodium Chloride (Normal Saline) 80 mls @ 3.5 mls/sec IV ONETIME ONE Stop: 10/24/17 15:26 Last Admin: 10/24/17 15:58 Dose: 3.5 mls/sec Iopamidol (Isovue-370 (76%)) 85 ml IV . DIRECTED NOEMY Stop: 10/24/17 23:00 Last Admin: 10/24/17 15:58 Dose: 85 ml Pneumococcal Polyvalent Vaccine (Pneumovax 23) 0.5 ml IM .ONCE ONE Stop: 10/25/17 14:01 Last Admin: 10/25/17 14:13 Dose: 0.5 ml Sodium Chloride (Saline Flush) 10 ml FLUSH ONETIME ONE Stop: 10/24/17 15:26 Last Admin: 10/25/17 09:23 Dose: 10 ml - Exam Quality Assessment: Supplemental Oxygen General: Alert, Oriented, Cooperative, No Acute Distress Neck: Supple Lungs: Normal Respiratory Effort, Decreased Breath Sounds (both bases), Crackles (rare left lung base) Cardiovascular: Regular Rate, Regular Rhythm, Gallops GI/Abdominal Exam: Soft, Non-Tender Extremities: Pedal Edema Psy/Mental Status: Alert, Normal Affect - Problem List & Annotations (1) Combined congestive systolic and diastolic heart failure SNOMED Code(s): 54982769, 448073808 Code(s): I50.40 - UNSP COMBINED SYSTOLIC AND DIASTOLIC (CONGESTIVE) HRT FAIL Status: Acute Current Visit: Yes Qualifiers: Heart failure chronicity: acute on chronic Qualified Code(s): I50.43 - Acute on chronic combined systolic (congestive) and diastolic (congestive) heart failure (2) Urinary retention SNOMED Code(s): 805293788 Code(s): R33.9 - RETENTION OF URINE, UNSPECIFIED Status: Acute Current Visit: Yes (3) Diabetes mellitus type II, controlled SNOMED Code(s): 86115783 Code(s): E11.9 - TYPE 2 DIABETES MELLITUS WITHOUT COMPLICATIONS Status: Chronic Current Visit: Yes Qualifiers: Diabetes mellitus mcfp insulin use: without mcfp use Diabetes mellitus complication status: with unspecified complications Qualified Code(s) : E11.8 - Type 2 diabetes mellitus with unspecified complications (4) Obesity (BMI 30-39.9) SNOMED Code(s): 951310251, 020102967 Code(s): E66.9 - OBESITY, UNSPECIFIED Status: Chronic Current Visit: Yes (5) Coronary artery disease SNOMED Code(s): 03226611 Code(s): I25.10 - ATHSCL HEART DISEASE OF [place] CORONARY ARTERY W/O ANG PCTRS Status: Chronic Current Visit: Yes Qualifiers: Coronary Disease-Associated Artery/Lesion type: [place] artery [place] vs. transplanted heart: [place] heart Associated angina: without angina Qualified Code(s): I25.10 - Atherosclerotic heart disease of [place] coronary artery without angina pectoris - Problem List Review Problem List Initiated/Reviewed/Updated: Yes - My Orders Last 24 Hours: My Active Orders 10/25/17 17:00 Carvedilol [Coreg] 6.25 mg PO BIDMEALS 10/26/17 07:00 Echo Comp wo Cont [US] Routine 10/26/17 09:00 Furosemide [Lasix] 80 mg IVPUSH DAILY 10/26/17 12:34 Dimethicone/Zinc Oxide [Rash Relief-Zinc Oxide [place]] 1 gm TOP ASDIRECTED PRN 10/27/17 05:00 BASIC METABOLIC PANEL,BMP [CHEM] Timed - Plan Plan:: ASSESSMENT AND PLAN - Acute decompensated combined systolic and diastolic congestive heart failure - suboptimal diuresis yesterday. Blood pressure on the low side today so antihypertensives were held. Echocardiogram completed but interpretation pending. -Furosemide 80 mg this morning -Strict monitoring of intake and output -Continue beta noble, hold BASSEM inhibitor -Supplement oxygen as needed -follow-up echocardiogram Acute urinary retention - more than 700 mL of urine noted on bladder scanning. Wren catheter has been replaced. Patient did not have significant symptoms with the urinary retention. -Continue Wren catheter, consider trial of voiding tomorrow if diuresis progresses well Compensated respiratory acidosis - PCO2 of 60 with a bicarbonate of nearly 40. PH is normal. Probably related to congestive heart failure but COPD could be contributing with nearly 40 pack/year history of smoking. Bicarbonate level stable. -Repeat labs daily Coronary artery disease - No anginal symptoms since that time. -Continue medical management including beta noble and dual antiplatelet therapy Diabetes mellitus type 2 - controlled with oral medications. Most recent hemoglobin A1c was 8. -Continue home medications Maintenance issues - - DVT prophylaxis - MAGNUS stockings - GI prophylaxis - not indicated - Nutrition - low sodium - Wren catheter - placed in the emergency room with acute urinary retention, still in place for strict intake and output monitoring during diuresis Disposition - anticipate discharge home after the hospital stay Primary care physician - Shreya Moya, [facility] [place] M.D.
[2017-10-26] MEDS: Acetaminophen 325 MG Tab PO PRN (19:37)
[2017-10-27] MEDS: Clopidogrel 75 MG Tab PO SCH (08:24)
[2017-10-27] MEDS: metFORMIN 500 MG Tab.ER PO SCH ×2 (08:24→20:24)
[2017-10-27] MEDS: glipiZIDE 5 MG Tab PO SCH ×2 (08:25→16:42)
[2017-10-27] MEDS: Aspirin 81 MG Tab.EC PO SCH (08:25)
[2017-10-27] MEDS: Carvedilol 6.25 MG Tab PO SCH ×2 (08:26→16:43)
[2017-10-27] MEDS: Furosemide 40 MG/4 ML VIAL IVPUSH SCH (08:28)
[2017-10-27] MEDS: atorvaSTATin 20 MG Tab PO SCH (08:29)
[2017-10-27] MEDS: Acetaminophen 325 MG Tab PO PRN ×2 (11:28→20:22)
--- NOTE | 2017-10-27 12:07 | PCM.PN ---
- General Info Date of Service: 10/27/17 Functional Status: Reports: Pain Controlled, Tolerating Diet - Review of Systems General: Reports: Weakness Pulmonary: Reports: Shortness of Breath Cardiovascular: Reports: Edema Systems Review Comment:: No acute events overnight. Diuresis suboptimal yesterday and hampered by lower blood pressures. Blood pressures are better this morning and we should be able to push the diuresis a little harder. He feels weak but thinks this is getting a little better each day. Occasionally has a cough. He has not had any fevers. Wren catheter was removed yesterday because of the discomfort it was causing but needed to be replaced because of ongoing urinary retention. - Patient Data Vitals - Most Recent: Last Vital Signs Temp 36.7 C 10/27/17 10:40 Pulse 80 10/27/17 10:40 Resp 20 10/27/17 10:40 BP 104/72 10/27/17 10:40 Pulse Ox 98 10/27/17 10:40 Weight - Most Recent: 114.475 kg I&O - Last 24 Hours: Intake & Output 10/26/17 10/27/17 10/27/17 22:59 06:59 14:59 Intake Total 960 240 Output Total 533 946 7520 Balance 610 -110 -1200 Lab Results Last 24 Hours: Laboratory Results - last 24 hr 10/27/17 Range/Units 05:53 Sodium 138 L (140-148) mmol/L Potassium 4.5 (3.6-5.2) mmol/L Chloride 98 L (100-108) mmol/L Carbon Dioxide 36 H (21-32) mmol/L Anion Gap 8.5 (5.0-14.0) mmol/L BUN 24 H (7-18) mg/dL Creatinine 0.7 L (0.8-1.3) mg/dL Est Cr Clr Drug Dosing 100.66 mL/min Estimated GFR (MDRD) > 60 (>60) Glucose 142 H (74-106) mg/dL Calcium 8.7 (8.5-10.1) mg/dL Med Orders - Current: Current Medications Acetaminophen (Tylenol) 650 mg PO Q4H PRN PRN Reason: Pain (Mild 1-3)/fever Last Admin: 10/27/17 11:28 Dose: 650 mg Albuterol (Proventil Neb Soln) 2.5 mg NEB Q4H PRN PRN Reason: Shortness Of Breath/wheezing Amlodipine Besylate (Norvasc) 5 mg PO DAILY [facility] Last Admin: 10/26/17 10:13 Dose: Not Given Aspirin (Halfprin) 81 mg PO DAILY [facility] Last Admin: 10/27/17 08:25 Dose: 81 mg Atorvastatin Calcium (Lipitor) 40 mg PO DAILY [facility] Last Admin: 10/27/17 08:29 Dose: 40 mg Carvedilol (Coreg) 6.25 mg PO BIDMEALS [facility] Last Admin: 10/27/17 08:26 Dose: 6.25 mg Clopidogrel Bisulfate (Plavix) 75 mg PO DAILY [facility] Last Admin: 10/27/17 08:24 Dose: 75 mg Dimethicone/Zinc Oxide (Rash Relief-Zinc Oxide [place]) 0 gm TOP ASDIRECTED PRN PRN Reason: Rash Furosemide (Lasix) 80 mg IVPUSH DAILY [facility] Last Admin: 10/27/17 08:28 Dose: 80 mg Furosemide (Lasix) 80 mg IVPUSH ONETIME ONE Stop: 10/27/17 15:01 [facility] Last Admin: 10/27/17 08:25 Dose: 20 mg Lisinopril (Prinivil) 40 mg PO DAILY [facility] Last Admin: 10/26/17 10:13 Dose: Not Given Metformin HCl (Glucophage Xr) 1,000 mg PO BID [facility] Last Admin: 10/27/17 08:24 Dose: 1,000 mg Ondansetron HCl (Zofran Odt) 4 mg PO Q6H PRN PRN Reason: Nausea able to take PO Polyethylene Glycol (Miralax) 17 gm PO DAILY PRN PRN Reason: Constipation Senna/Docusate Sodium (Senna Plus) 1 tab PO BID PRN PRN Reason: Constipation Discontinued Medications Albuterol (Proventil Neb Soln) 2.5 mg NEB ONETIME ONE Stop: 10/24/17 14:16 Last Admin: 10/24/17 15:07 Dose: 2.5 mg Carvedilol (Coreg) 6.25 mg PO BID [facility] Last Admin: 10/24/17 20:54 Dose: 6.25 mg Furosemide (Lasix) 80 mg IVPUSH NOW ONE Stop: 10/24/17 17:45 Last Admin: 10/24/17 18:42 Dose: 80 mg Furosemide 40 mg/ Furosemide (20 mg) 60 mg IV ONETIME ONE Stop: 10/25/17 09:01 Last Admin: 10/25/17 09:19 Dose: 60 mg Furosemide (Lasix) 40 mg IVPUSH DAILY [facility] Furosemide (Lasix) 40 mg IVPUSH ONETIME ONE Stop: 10/25/17 16:01 Last Admin: 10/25/17 16:33 Dose: 40 mg Glipizide (Glucotrol) Confirm Administered Dose 20 mg .ROUTE .STK-MED ONE Stop: 10/24/17 21:36 Last Admin: 10/24/17 21:38 Dose: Not Given Sodium Chloride (Normal Saline) 80 mls @ 3.5 mls/sec IV ONETIME ONE Stop: 10/24/17 15:26 Last Admin: 10/24/17 15:58 Dose: 3.5 mls/sec Iopamidol (Isovue-370 (76%)) 85 ml IV . DIRECTED [facility]EM[facility] Stop: 10/24/17 23:00 Last Admin: 10/24/17 15:58 Dose: 85 ml Pneumococcal Polyvalent Vaccine (Pneumovax 23) 0.5 ml IM .ONCE ONE Stop: 10/25/17 14:01 Last Admin: 10/25/17 14:13 Dose: 0.5 ml Sodium Chloride (Saline Flush) 10 ml FLUSH ONETIME ONE Stop: 10/24/17 15:26 Last Admin: 10/25/17 09:23 Dose: 10 ml - Exam Quality Assessment: Supplemental Oxygen General: Alert, Oriented, Cooperative, No Acute Distress Neck: Supple Lungs: Clear to Auscultation, Normal Respiratory Effort Cardiovascular: Regular Rate, Regular Rhythm. No: Murmurs GI/Abdominal Exam: Soft, No Distention Extremities: Pedal Edema Psy/Mental Status: Alert, Normal Affect - Problem List & Annotations (1) Combined congestive systolic and diastolic heart failure SNOMED Code(s): 94636334, 587400911 Code(s): I50.40 - UNSP COMBINED SYSTOLIC AND DIASTOLIC (CONGESTIVE) HRT FAIL Status: Acute Current Visit: Yes Qualifiers: Heart failure chronicity: acute on chronic Qualified Code(s): I50.43 - Acute on chronic combined systolic (congestive) and diastolic (congestive) heart failure (2) Urinary retention SNOMED Code(s): 456315249 Code(s): R33.9 - RETENTION OF URINE, UNSPECIFIED Status: Acute Current Visit: Yes (3) Diabetes mellitus type II, controlled SNOMED Code(s): 75669281 Code(s): E11.9 - TYPE 2 DIABETES MELLITUS WITHOUT COMPLICATIONS Status: Chronic Current Visit: Yes Qualifiers: Diabetes mellitus [facility] insulin use: without scaffolder use Diabetes mellitus complication status: with unspecified complications Qualified Code(s) : E11.8 - Type 2 diabetes mellitus with unspecified complications (4) Obesity (BMI 30-39.9) SNOMED Code(s): 911925713, 819216231 Code(s): E66.9 - OBESITY, UNSPECIFIED Status: Chronic Current Visit: Yes (5) Coronary artery disease SNOMED Code(s): 39584134 Code(s): I25.10 - ATHSCL HEART DISEASE OF [place] CORONARY ARTERY W/O ANG PCTRS Status: Chronic Current Visit: Yes Qualifiers: Coronary Disease-Associated Artery/Lesion type: [place] artery [place] vs. transplanted heart: [place] heart Associated angina: without angina Qualified Code(s): I25.10 - Atherosclerotic heart disease of [place] coronary artery without angina pectoris - Problem List Review Problem List Initiated/Reviewed/Updated: Yes - My Orders Last 24 Hours: My Active Orders 10/26/17 12:34 Dimethicone/Zinc Oxide [Rash Relief-Zinc Oxide [place]] 0 gm TOP ASDIRECTED PRN 10/27/17 06:19 Insert Urinary Catheter [OM.PC] Stat Urinary Catheter Assessment [RC] ASDIRECTED 10/27/17 15:00 Furosemide [Lasix] 80 mg IVPUSH ONETIME ONE 10/28/17 05:00 BASIC METABOLIC PANEL,BMP [CHEM] Timed - Plan Plan:: ASSESSMENT AND PLAN - Acute decompensated combined systolic and diastolic congestive heart failure - suboptimal diuresis yesterday and hampered further by lower blood pressures. Pressures better today area echocardiogram showed stability with mild reduction in ejection fraction. Inferior vena cava remains dilated. Still requiring supplemental oxygen. -Furosemide 80 mg this morning and reassess this afternoon -Strict monitoring of intake and output -Continue beta noble, hold BASSEM inhibitor -Supplement oxygen as needed Acute urinary retention - Wren removed yesterday evening but needed to be replaced because of ongoing urinary retention. -Continue Wren catheter, this may need to be left in place with outpatient voiding trial Coronary artery disease - No anginal symptoms since that time. -Continue medical management including beta noble and dual antiplatelet therapy Diabetes mellitus type 2 - controlled with oral medications. Most recent hemoglobin A1c was 8. -Continue home medications Maintenance issues - - DVT prophylaxis - MAGNUS stockings - GI prophylaxis - not indicated - Nutrition - low sodium - Wren catheter - placed in the emergency room with acute urinary retention, failed voiding trial and has second catheter in place. Disposition - anticipate discharge home after the hospital stay Primary care physician - Shreya Moya, [facility] [place] M.D.
[2017-10-27] MEDS ORDERED: Furosemide 40 MG/4 ML VIAL IVPUSH ONE (15:00)
[2017-10-27] MEDS: Dimethicone 20%/Zinc Oxide 25% 56 GM Spray Bottle TOP PRN (20:42)
[2017-10-28] MEDS: glipiZIDE 5 MG Tab PO SCH ×2 (07:49→16:20)
[2017-10-28] MEDS: Carvedilol 6.25 MG Tab PO SCH ×2 (07:50→17:01)
[2017-10-28] MEDS: Acetaminophen 325 MG Tab PO PRN ×2 (08:00→17:23)
[2017-10-28] MEDS: metFORMIN 500 MG Tab.ER PO SCH ×2 (08:55→20:16)
[2017-10-28] MEDS: Aspirin 81 MG Tab.EC PO SCH (08:56)
[2017-10-28] MEDS: amLODIPine 5 MG Tab PO SCH (08:56)
[2017-10-28] MEDS: atorvaSTATin 20 MG Tab PO SCH (08:59)
[2017-10-28] MEDS: Lisinopril 20 MG Tab PO SCH (08:59)
[2017-10-28] MEDS: Clopidogrel 75 MG Tab PO SCH (09:00)
[2017-10-28] MEDS: Furosemide 40 MG/4 ML VIAL IVPUSH SCH (09:00)
--- NOTE | 2017-10-28 11:21 | PCM.PN ---
- General Info Date of Service: 10/28/17 Functional Status: Reports: Pain Controlled, Tolerating Diet - Review of Systems General: Reports: Weakness Pulmonary: Reports: Shortness of Breath Systems Review Comment:: There were no acute events overnight. Excellent response to diuresis again yesterday. Still requiring supplemental oxygen. Weight is decreasing and in general he's feeling better. Still pretty short of breath with any activity. No chest pain. No fevers. Kidney function stable. - Patient Data Vitals - Most Recent: Last Vital Signs Temp 36.3 C 10/28/17 08:00 Pulse 89 10/28/17 07:50 Resp 20 10/28/17 08:00 BP 118/57 L 10/28/17 09:00 Pulse Ox 95 10/28/17 08:00 Weight - Most Recent: 113.942 kg I&O - Last 24 Hours: Intake & Output 10/27/17 10/28/17 10/28/17 22:59 06:59 14:59 Intake Total 240 Output Total 0101 700 Balance -1675 -460 Lab Results Last 24 Hours: Laboratory Results - last 24 hr 10/28/17 Range/Units 05:33 Sodium 139 L (140-148) mmol/L Potassium 4.0 (3.6-5.2) mmol/L Chloride 98 L (100-108) mmol/L Carbon Dioxide 38 H (21-32) mmol/L Anion Gap 7.0 (5.0-14.0) mmol/L BUN 22 H (7-18) mg/dL Creatinine 0.7 L (0.8-1.3) mg/dL Est Cr Clr Drug Dosing 100.66 mL/min Estimated GFR (MDRD) > 60 (>60) Glucose 160 H (74-106) mg/dL Calcium 8.9 (8.5-10.1) mg/dL Med Orders - Current: Current Medications Acetaminophen (Tylenol) 650 mg PO Q4H PRN PRN Reason: Pain (Mild 1-3)/fever Last Admin: 10/28/17 08:00 Dose: 650 mg Albuterol (Proventil Neb Soln) 2.5 mg NEB Q4H PRN PRN Reason: Shortness Of Breath/wheezing Amlodipine Besylate (Norvasc) 5 mg PO DAILY [facility] Last Admin: 10/28/17 08:56 Dose: 5 mg Aspirin (Halfprin) 81 mg PO DAILY [facility] Last Admin: 10/28/17 08:56 Dose: 81 mg Atorvastatin Calcium (Lipitor) 40 mg PO DAILY [facility] Last Admin: 10/28/17 08:59 Dose: 40 mg Carvedilol (Coreg) 6.25 mg PO BIDMEALS [facility] Last Admin: 10/28/17 07:50 Dose: 6.25 mg Clopidogrel Bisulfate (Plavix) 75 mg PO DAILY [facility] Last Admin: 10/28/17 09:00 Dose: 75 mg Dimethicone/Zinc Oxide (Rash Relief-Zinc Oxide [place]) 0 gm TOP ASDIRECTED PRN PRN Reason: Rash Last Admin: 10/27/17 20:42 Dose: 1 applic Furosemide (Lasix) 80 mg IVPUSH DAILY [facility] Last Admin: 10/28/17 09:00 Dose: 80 mg [facility]) [facility] Last Admin: 10/28/17 07:49 Dose: 20 mg Lisinopril (Prinivil) 40 mg PO DAILY [facility] Last Admin: 10/28/17 08:59 Dose: 40 mg Metformin HCl (Glucophage Xr) 1,000 mg PO BID [facility] Last Admin: 10/28/17 08:55 Dose: 1,000 mg Ondansetron HCl (Zofran Odt) 4 mg PO Q6H PRN PRN Reason: Nausea able to take PO Polyethylene Glycol (Miralax) 17 gm PO DAILY PRN PRN Reason: Constipation Senna/Docusate Sodium (Senna Plus) 1 tab PO BID PRN PRN Reason: Constipation Discontinued Medications Albuterol (Proventil Neb Soln) 2.5 mg NEB ONETIME ONE Stop: 10/24/17 14:16 Last Admin: 10/24/17 15:07 Dose: 2.5 mg Carvedilol (Coreg) 6.25 mg PO BID [facility] Last Admin: 10/24/17 20:54 Dose: 6.25 mg Furosemide (Lasix) 80 mg IVPUSH NOW ONE Stop: 10/24/17 17:45 Last Admin: 10/24/17 18:42 Dose: 80 mg Furosemide 40 mg/ Furosemide (20 mg) 60 mg IV ONETIME ONE Stop: 10/25/17 09:01 Last Admin: 10/25/17 09:19 Dose: 60 mg Furosemide (Lasix) 40 mg IVPUSH DAILY [facility] Furosemide (Lasix) 40 mg IVPUSH ONETIME ONE Stop: 10/25/17 16:01 Last Admin: 10/25/17 16:33 Dose: 40 mg Furosemide (Lasix) 80 mg IVPUSH ONETIME ONE Stop: 10/27/17 15:01 Last Admin: 10/27/17 16:42 Dose: 80 mg Glipizide (Glucotrol) Confirm Administered Dose 20 mg .ROUTE .STK-MED ONE Stop: 10/24/17 21:36 Last Admin: 10/24/17 21:38 Dose: Not Given Sodium Chloride (Normal Saline) 80 mls @ 3.5 mls/sec IV ONETIME ONE Stop: 10/24/17 15:26 Last Admin: 10/24/17 15:58 Dose: 3.5 mls/sec Iopamidol (Isovue-370 (76%)) 85 ml IV . DIRECTED [facility] Stop: 10/24/17 23:00 Last Admin: 10/24/17 15:58 Dose: 85 ml Pneumococcal Polyvalent Vaccine (Pneumovax 23) 0.5 ml IM .ONCE ONE Stop: 10/25/17 14:01 Last Admin: 10/25/17 14:13 Dose: 0.5 ml Sodium Chloride (Saline Flush) 10 ml FLUSH ONETIME ONE Stop: 10/24/17 15:26 Last Admin: 10/25/17 09:23 Dose: 10 ml - Exam Quality Assessment: Supplemental Oxygen General: Alert, Oriented, Cooperative, No Acute Distress Neck: Supple Lungs: Normal Respiratory Effort, Crackles (rare at bases) Cardiovascular: Regular Rate, Regular Rhythm. No: Murmurs GI/Abdominal Exam: Soft, No Distention Extremities: Pedal Edema Psy/Mental Status: Alert, Normal Affect - Problem List & Annotations (1) Combined congestive systolic and diastolic heart failure SNOMED Code(s): 80028281, 496792479 Code(s): I50.40 - UNSP COMBINED SYSTOLIC AND DIASTOLIC (CONGESTIVE) HRT FAIL Status: Acute Current Visit: Yes Qualifiers: Heart failure chronicity: acute on chronic Qualified Code(s): I50.43 - Acute on chronic combined systolic (congestive) and diastolic (congestive) heart failure (2) Urinary retention SNOMED Code(s): 020744757 Code(s): R33.9 - RETENTION OF URINE, UNSPECIFIED Status: Acute Current Visit: Yes (3) Diabetes mellitus type II, controlled SNOMED Code(s): 11874308 Code(s): E11.9 - TYPE 2 DIABETES MELLITUS WITHOUT COMPLICATIONS Status: Chronic Current Visit: Yes Qualifiers: Diabetes mellitus terminal supervisor insulin use: without half-way use Diabetes mellitus complication status: with unspecified complications Qualified Code(s) : E11.8 - Type 2 diabetes mellitus with unspecified complications (4) Obesity (BMI 30-39.9) SNOMED Code(s): 313612423, 525416024 Code(s): E66.9 - OBESITY, UNSPECIFIED Status: Chronic Current Visit: Yes (5) Coronary artery disease SNOMED Code(s): 16650355 Code(s): I25.10 - ATHSCL HEART DISEASE OF [place] CORONARY ARTERY W/O ANG PCTRS Status: Chronic Current Visit: Yes Qualifiers: Coronary Disease-Associated Artery/Lesion type: [place] artery [place] vs. transplanted heart: [place] heart Associated angina: without angina Qualified Code(s): I25.10 - Atherosclerotic heart disease of [place] coronary artery without angina pectoris - Problem List Review Problem List Initiated/Reviewed/Updated: Yes - My Orders Last 24 Hours: My Active Orders 10/28/17 16:00 Furosemide [Lasix] 80 mg IVPUSH ONETIME ONE 10/28/17 17:00 GLUCOSE POC LAB TO COLLECT [POC] BIDAC 10/29/17 05:00 BASIC METABOLIC PANEL,BMP [CHEM] Timed 10/29/17 08:00 GLUCOSE POC LAB TO COLLECT [POC] BIDAC 10/29/17 17:00 GLUCOSE POC LAB TO COLLECT [POC] BIDAC 10/30/17 08:00 GLUCOSE POC LAB TO COLLECT [POC] BIDAC 10/30/17 17:00 GLUCOSE POC LAB TO COLLECT [POC] BIDAC - Plan Plan:: ASSESSMENT AND PLAN - Acute decompensated combined systolic and diastolic congestive heart failure - excellent diuresis yesterday. Blood pressure has remained stable and kidney function remains stable. Still requiring supplemental oxygen but weight is steadily decreasing with diuresis. -Furosemide 80 mg this morning and reassess this afternoon -Strict monitoring of intake and output -Continue beta noble, hold BASSEM inhibitor -Supplement oxygen as needed Acute urinary retention - needed to be replaced because of ongoing urinary retention. -Continue Wren catheter, this may need to be left in place with outpatient voiding trial Coronary artery disease - No anginal symptoms since that time. -Continue medical management including beta noble and dual antiplatelet therapy Diabetes mellitus type 2 - controlled with oral medications. Most recent hemoglobin A1c was 8. -Continue home medications Maintenance issues - - DVT prophylaxis - MAGNUS stockings - GI prophylaxis - not indicated - Nutrition - low sodium - Wren catheter - placed in the emergency room with acute urinary retention, failed voiding trial and has second catheter in place. Disposition - anticipate discharge home after the hospital stay Primary care physician - Shreya Moya, [facility] [place] M.D.
[2017-10-28] MEDS: Furosemide 40 MG/4 ML VIAL IVPUSH ONE ×2 (16:17→17:39)
[2017-10-28] MEDS: Dimethicone 20%/Zinc Oxide 25% 56 GM Spray Bottle TOP PRN (20:22)
[2017-10-29] MEDS: glipiZIDE 5 MG Tab PO SCH ×2 (07:10→16:01)
[2017-10-29] MEDS: Carvedilol 6.25 MG Tab PO SCH ×2 (07:10→16:01)
[2017-10-29] MEDS: metFORMIN 500 MG Tab.ER PO SCH ×2 (08:32→20:01)
[2017-10-29] MEDS: Clopidogrel 75 MG Tab PO SCH (08:33)
[2017-10-29] MEDS: atorvaSTATin 20 MG Tab PO SCH (08:33)
[2017-10-29] MEDS: Acetaminophen 325 MG Tab PO PRN ×2 (08:33→16:55)
[2017-10-29] MEDS: Aspirin 81 MG Tab.EC PO SCH (08:33)
[2017-10-29] MEDS: Furosemide 40 MG/4 ML VIAL IVPUSH SCH (10:51)
--- NOTE | 2017-10-29 13:17 | PCM.PN ---
- General Info Date of Service: 10/29/17 Functional Status: Reports: Pain Controlled, Tolerating Diet - Review of Systems Pulmonary: Reports: Shortness of Breath Cardiovascular: Reports: Edema Systems Review Comment:: no acute events overnight. Good response to diuresis again yesterday. Slowly feeling better but still requiring supplemental oxygen. Lower extremity edema continues to improve. Kidney function stable. Appetite has been good. Rash in the groin area does not seem to be getting better. - Patient Data Vitals - Most Recent: Last Vital Signs Temp 36.2 C 10/29/17 11:02 Pulse 78 10/29/17 11:02 Resp 18 10/29/17 11:02 BP 92/53 L 10/29/17 12:59 Pulse Ox 98 10/29/17 11:02 Weight - Most Recent: 114.668 kg I&O - Last 24 Hours: Intake & Output 10/28/17 10/29/17 10/29/17 22:59 06:59 14:59 Intake Total 240 240 Output Total 650 450 650 Balance -650 -210 -410 Lab Results Last 24 Hours: Laboratory Results - last 24 hr 10/29/17 Range/Units 05:24 Sodium 140 (140-148) mmol/L Potassium 4.5 (3.6-5.2) mmol/L Chloride 98 L (100-108) mmol/L Carbon Dioxide 39 H (21-32) mmol/L Anion Gap 7.5 (5.0-14.0) mmol/L BUN 26 H (7-18) mg/dL Creatinine 0.8 (0.8-1.3) mg/dL Est Cr Clr Drug Dosing 88.08 mL/min Estimated GFR (MDRD) > 60 (>60) Glucose 110 H (74-106) mg/dL Calcium 8.9 (8.5-10.1) mg/dL Med Orders - Current: Current Medications Acetaminophen (Tylenol) 650 mg PO Q4H PRN PRN Reason: Pain (Mild 1-3)/fever Last Admin: 10/29/17 08:33 Dose: 650 mg Albuterol (Proventil Neb Soln) 2.5 mg NEB Q4H PRN PRN Reason: Shortness Of Breath/wheezing Amlodipine Besylate (Norvasc) 5 mg PO DAILY [facility] Last Admin: 10/28/17 08:56 Dose: 5 mg Aspirin (Halfprin) 81 mg PO DAILY [facility] Last Admin: 10/29/17 08:33 Dose: 81 mg Atorvastatin Calcium (Lipitor) 40 mg PO DAILY [facility] Last Admin: 10/29/17 08:33 Dose: 40 mg Carvedilol (Coreg) 6.25 mg PO BIDMEALS [facility] Last Admin: 10/29/17 07:10 Dose: 6.25 mg Clopidogrel Bisulfate (Plavix) 75 mg PO DAILY [facility] Last Admin: 10/29/17 08:33 Dose: 75 mg Furosemide (Lasix) 80 mg IVPUSH DAILY [facility] Last Admin: 10/29/17 10:51 Dose: 80 mg Glipizide (Glucotrol) 20 mg PO BIDAC [facility] Last Admin: 10/29/17 07:10 Dose: 20 mg Lisinopril (Prinivil) 40 mg PO DAILY [facility] Last Admin: 10/28/17 08:59 Dose: 40 mg Metformin HCl (Glucophage Xr) 1,000 mg PO BID [facility] Last Admin: 10/29/17 08:32 Dose: 1,000 mg Ondansetron HCl (Zofran Odt) 4 mg PO Q6H PRN PRN Reason: Nausea able to take PO Polyethylene Glycol (Miralax) 17 gm PO DAILY PRN PRN Reason: Constipation Senna/Docusate Sodium (Senna Plus) 1 tab PO BID PRN PRN Reason: Constipation Discontinued Medications Albuterol (Proventil Neb Soln) 2.5 mg NEB ONETIME ONE Stop: 10/24/17 14:16 Last Admin: 10/24/17 15:07 Dose: 2.5 mg Carvedilol (Coreg) 6.25 mg PO BID [facility] Last Admin: 10/24/17 20:54 Dose: 6.25 mg Dimethicone/Zinc Oxide (Rash Relief-Zinc Oxide [place]) 0 gm TOP ASDIRECTED PRN PRN Reason: Rash Last Admin: 10/28/17 20:22 Dose: 1 applic Furosemide (Lasix) 80 mg IVPUSH NOW ONE Stop: 10/24/17 17:45 Last Admin: 10/24/17 18:42 Dose: 80 mg Furosemide 40 mg/ Furosemide (20 mg) 60 mg IV ONETIME ONE Stop: 10/25/17 09:01 Last Admin: 10/25/17 09:19 Dose: 60 mg Furosemide (Lasix) 40 mg IVPUSH DAILY [facility] Furosemide (Lasix) 40 mg IVPUSH ONETIME ONE Stop: 10/25/17 16:01 Last Admin: 10/25/17 16:33 Dose: 40 mg Furosemide (Lasix) 80 mg IVPUSH ONETIME ONE Stop: 10/27/17 15:01 Last Admin: 10/27/17 16:42 Dose: 80 mg Furosemide (Lasix) 80 mg IVPUSH ONETIME ONE Stop: 10/28/17 16:01 Last Admin: 10/28/17 17:39 Dose: Not Given Glipizide (Glucotrol) Confirm Administered Dose 20 mg .ROUTE .STK-MED ONE Stop: 10/24/17 21:36 Last Admin: 10/24/17 21:38 Dose: Not Given Sodium Chloride (Normal Saline) 80 mls @ 3.5 mls/sec IV ONETIME ONE Stop: 10/24/17 15:26 Last Admin: 10/24/17 15:58 Dose: 3.5 mls/sec Iopamidol (Isovue-370 (76%)) 85 ml IV . DIRECTED [facility] Stop: 10/24/17 23:00 Last Admin: 10/24/17 15:58 Dose: 85 ml Pneumococcal Polyvalent Vaccine (Pneumovax 23) 0.5 ml IM .ONCE ONE Stop: 10/25/17 14:01 Last Admin: 10/25/17 14:13 Dose: 0.5 ml Sodium Chloride (Saline Flush) 10 ml FLUSH ONETIME ONE Stop: 10/24/17 15:26 Last Admin: 10/25/17 09:23 Dose: 10 ml - Exam Quality Assessment: Supplemental Oxygen General: Alert, Oriented, Cooperative, No Acute Distress Neck: Supple, JVD Lungs: Clear to Auscultation, Normal Respiratory Effort Cardiovascular: Regular Rate, Regular Rhythm GI/Abdominal Exam: Soft, No Distention Extremities: Pedal Edema (mild bilateral ) Skin: Warm, Dry, Rash (erythematous rash in groin) Psy/Mental Status: Alert, Normal Affect - Problem List & Annotations (1) Combined congestive systolic and diastolic heart failure SNOMED Code(s): 66076608, 643067335 Code(s): I50.40 - UNSP COMBINED SYSTOLIC AND DIASTOLIC (CONGESTIVE) HRT FAIL Status: Acute Current Visit: Yes Qualifiers: Heart failure chronicity: acute on chronic Qualified Code(s): I50.43 - Acute on chronic combined systolic (congestive) and diastolic (congestive) heart failure (2) Urinary retention SNOMED Code(s): 112522310 Code(s): R33.9 - RETENTION OF URINE, UNSPECIFIED Status: Acute Current Visit: Yes (3) Diabetes mellitus type II, controlled SNOMED Code(s): 02740423 Code(s): E11.9 - TYPE 2 DIABETES MELLITUS WITHOUT COMPLICATIONS Status: Chronic Current Visit: Yes Qualifiers: Diabetes mellitus oysterman insulin use: without senior care use Diabetes mellitus complication status: with unspecified complications Qualified Code(s) : E11.8 - Type 2 diabetes mellitus with unspecified complications (4) Obesity (BMI 30-39.9) SNOMED Code(s): 917504988, 478073808 Code(s): E66.9 - OBESITY, UNSPECIFIED Status: Chronic Current Visit: Yes (5) Coronary artery disease SNOMED Code(s): 92550681 Code(s): I25.10 - ATHSCL HEART DISEASE OF [place] CORONARY ARTERY W/O ANG PCTRS Status: Chronic Current Visit: Yes Qualifiers: Coronary Disease-Associated Artery/Lesion type: [place] artery [place] vs. transplanted heart: [place] heart Associated angina: without angina Qualified Code(s): I25.10 - Atherosclerotic heart disease of [place] coronary artery without angina pectoris - Problem List Review Problem List Initiated/Reviewed/Updated: Yes - My Orders Last 24 Hours: My Active Orders 10/29/17 14:00 Nystatin [Nystop] 1 gm TOP TID 10/29/17 15:00 Furosemide [Lasix] 60 mg IVPUSH ONETIME ONE 10/29/17 17:00 GLUCOSE POC LAB TO COLLECT [POC] BIDAC 10/30/17 08:00 GLUCOSE POC LAB TO COLLECT [POC] BIDAC 10/30/17 17:00 GLUCOSE POC LAB TO COLLECT [POC] BIDAC - Plan Plan:: ASSESSMENT AND PLAN - Acute decompensated combined systolic and diastolic congestive heart failure - excellent diuresis yesterday and symptoms slowly improving but still requiring supplemental oxygen. Blood pressures on the lower side this afternoon and we will not be able to diuresis quite as aggressively this afternoon. -Furosemide 80 mg this morning and 60 mg this afternoon -Strict monitoring of intake and output -Continue beta noble, hold BASSEM inhibitor -Supplement oxygen as needed Acute urinary retention - needed to be replaced because of ongoing urinary retention. -Continue Wren catheter, this may need to be left in place with outpatient voiding trial Coronary artery disease - No anginal symptoms since that time. -Continue medical management including beta noble and dual antiplatelet therapy Diabetes mellitus type 2 - controlled with oral medications. -Continue home medications -twice daily Accu-Cheks Maintenance issues - - DVT prophylaxis - MAGNUS stockings - GI prophylaxis - not indicated - Nutrition - low sodium - Wren catheter - placed in the emergency room with acute urinary retention, failed voiding trial and has second catheter in place. Disposition - anticipate discharge home after the hospital stay Primary care physician - Shreya Moya, [facility] [place] M.D.
[2017-10-29] MEDS: Lisinopril 20 MG Tab PO SCH (13:44)
[2017-10-29] MEDS: amLODIPine 5 MG Tab PO SCH (13:46)
[2017-10-29] MEDS: Nystatin Topical Powder 15 GM Bottle TOP SCH ×2 (14:48→20:01)
[2017-10-29] MEDS ORDERED: Furosemide 20 MG/2 ML VIAL IVPUSH ONE (15:00)
[2017-10-30] MEDS: glipiZIDE 5 MG Tab PO SCH ×2 (07:28→17:52)
[2017-10-30] MEDS: Carvedilol 6.25 MG Tab PO SCH ×2 (07:28→17:53)
[2017-10-30] MEDS: Aspirin 81 MG Tab.EC PO SCH (08:55)
[2017-10-30] MEDS: metFORMIN 500 MG Tab.ER PO SCH ×2 (08:55→21:32)
[2017-10-30] MEDS: Nystatin Topical Powder 15 GM Bottle TOP SCH ×3 (08:56→21:31)
[2017-10-30] MEDS: Clopidogrel 75 MG Tab PO SCH (08:56)
[2017-10-30] MEDS: atorvaSTATin 20 MG Tab PO SCH (08:56)
[2017-10-30] MEDS: Furosemide 40 MG/4 ML VIAL IVPUSH SCH (08:57)
[2017-10-30] MEDS: Acetaminophen 325 MG Tab PO PRN ×2 (10:44→19:38)
[2017-10-30] MEDS: amLODIPine 5 MG Tab PO SCH (10:44)
--- NOTE | 2017-10-30 13:13 | PCM.PN ---
- General Info Date of Service: 10/30/17 Subjective Update: Mr. Robertson has been stable since yesterday, has not had further severe hypotension that he had had earlier in the hospital stay. Continues to diurese with decreased shortness of breath and peripheral edema. - Review of Systems General: Denies: Fever, Weakness, Chills Pulmonary: Reports: Shortness of Breath. Denies: Cough, Sputum, Hemoptysis, Wheezing Cardiovascular: Reports: Dyspnea on Exertion, Edema. Denies: Chest Pain, Palpitations, Orthopnea, PND, Lightheadedness Gastrointestinal: Reports: No Symptoms - Patient Data Vitals - Most Recent: Last Vital Signs Temp 97.8 F 10/30/17 12:00 Pulse 88 10/30/17 12:00 Resp 20 10/30/17 12:00 BP 113/55 L 10/30/17 12:00 Pulse Ox 94 L 10/30/17 12:00 Weight - Most Recent: 252 lb 12.8 oz I&O - Last 24 Hours: Intake & Output 10/29/17 10/30/17 10/30/17 22:59 06:59 14:59 Intake Total 720 360 Output Total 1150 750 Balance -430 -750 360 Med Orders - Current: Current Medications Acetaminophen (Tylenol) 650 mg PO Q4H PRN PRN Reason: Pain (Mild 1-3)/fever Last Admin: 10/30/17 10:44 Dose: 650 mg Albuterol (Proventil Neb Soln) 2.5 mg NEB Q4H PRN PRN Reason: Shortness Of Breath/wheezing Amlodipine Besylate (Norvasc) 5 mg PO DAILY [facility] Last Admin: 10/30/17 10:44 Dose: 5 mg Aspirin (Halfprin) 81 mg PO DAILY [facility] Last Admin: 10/30/17 08:55 Dose: 81 mg Atorvastatin Calcium (Lipitor) 40 mg PO DAILY [facility] Last Admin: 10/30/17 08:56 Dose: 40 mg Carvedilol (Coreg) 6.25 mg PO BIDMEALS [facility] Last Admin: 10/30/17 07:28 Dose: 6.25 mg Clopidogrel Bisulfate (Plavix) 75 mg PO DAILY [facility] Last Admin: 10/30/17 08:56 Dose: 75 mg Furosemide (Lasix) 80 mg IVPUSH DAILY [facility] Last Admin: 10/30/17 08:57 Dose: 80 mg Furosemide (Lasix) 80 mg IVPUSH ONETIME ONE Stop: 10/30/17 18:01 [facility] Last Admin: 10/30/17 07:28 Dose: 20 mg Lisinopril (Prinivil) 40 mg PO DAILY [facility] Last Admin: 10/29/17 13:44 Dose: Not Given Metformin HCl (Glucophage Xr) 1,000 mg PO BID [facility] Last Admin: 10/30/17 08:55 Dose: 1,000 mg Nystatin (Nystop) 0 gm TOP TID [facility] Last Admin: 10/30/17 08:56 Dose: 1 applic Ondansetron HCl (Zofran Odt) 4 mg PO Q6H PRN PRN Reason: Nausea able to take PO Polyethylene Glycol (Miralax) 17 gm PO DAILY PRN PRN Reason: Constipation Senna/Docusate Sodium (Senna Plus) 1 tab PO BID PRN PRN Reason: Constipation Tamsulosin HCl (Flomax) 0.4 mg PO PCBREAKFAST [facility] Discontinued Medications Albuterol (Proventil Neb Soln) 2.5 mg NEB ONETIME ONE Stop: 10/24/17 14:16 Last Admin: 10/24/17 15:07 Dose: 2.5 mg Carvedilol (Coreg) 6.25 mg PO BID [facility] Last Admin: 10/24/17 20:54 Dose: 6.25 mg Dimethicone/Zinc Oxide (Rash Relief-Zinc Oxide [place]) 0 gm TOP ASDIRECTED PRN PRN Reason: Rash Last Admin: 10/28/17 20:22 Dose: 1 applic Furosemide (Lasix) 80 mg IVPUSH NOW ONE Stop: 10/24/17 17:45 Last Admin: 10/24/17 18:42 Dose: 80 mg Furosemide 40 mg/ Furosemide (20 mg) 60 mg IV ONETIME ONE Stop: 10/25/17 09:01 Last Admin: 10/25/17 09:19 Dose: 60 mg Furosemide (Lasix) 40 mg IVPUSH DAILY [facility] Furosemide (Lasix) 40 mg IVPUSH ONETIME ONE Stop: 10/25/17 16:01 Last Admin: 10/25/17 16:33 Dose: 40 mg Furosemide (Lasix) 80 mg IVPUSH ONETIME ONE Stop: 10/27/17 15:01 Last Admin: 10/27/17 16:42 Dose: 80 mg Furosemide (Lasix) 80 mg IVPUSH ONETIME ONE Stop: 10/28/17 16:01 Last Admin: 10/28/17 17:39 Dose: Not Given Furosemide (Lasix) 60 mg IVPUSH ONETIME ONE Stop: 10/29/17 15:01 Last Admin: 10/29/17 16:00 Dose: 60 mg Glipizide (Glucotrol) Confirm Administered Dose 20 mg .ROUTE .STK-MED ONE Stop: 10/24/17 21:36 Last Admin: 10/24/17 21:38 Dose: Not Given Sodium Chloride (Normal Saline) 80 mls @ 3.5 mls/sec IV ONETIME ONE Stop: 10/24/17 15:26 Last Admin: 10/24/17 15:58 Dose: 3.5 mls/sec Iopamidol (Isovue-370 (76%)) 85 ml IV . DIRECTED NOEMY Stop: 10/24/17 23:00 Last Admin: 10/24/17 15:58 Dose: 85 ml Pneumococcal Polyvalent Vaccine (Pneumovax 23) 0.5 ml IM .ONCE ONE Stop: 10/25/17 14:01 Last Admin: 10/25/17 14:13 Dose: 0.5 ml Sodium Chloride (Saline Flush) 10 ml FLUSH ONETIME ONE Stop: 10/24/17 15:26 Last Admin: 10/25/17 09:23 Dose: 10 ml - Exam Quality Assessment: Supplemental Oxygen, DVT Prophylaxis General: Alert, Oriented, Cooperative, No Acute Distress Lungs: Clear to Auscultation, Normal Respiratory Effort Cardiovascular: Regular Rate, Regular Rhythm, No Murmurs GI/Abdominal Exam: Soft, Non-Tender, No Organomegaly, No Distention Extremities: Non-Tender, No Pedal Edema Skin: Warm, Dry, Intact - Problem List Review Problem List Initiated/Reviewed/Updated: Yes - My Orders Last 24 Hours: My Active Orders 10/30/17 13:08 Tamsulosin [Flomax] 0.4 mg PO PCBREAKFAST 10/30/17 13:10 Remove Wren Catheter [Urinary Catheter Removal] [RC] Per Unit Routine 10/30/17 18:00 Furosemide [Lasix] 80 mg IVPUSH ONETIME ONE - Plan Plan:: ASSESSMENT AND PLAN - 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 -Continue medical management including beta noble and dual antiplatelet therapy Diabetes mellitus type 2 - controlled with oral medications. -Continue home medications -twice daily Accu-Cheks Maintenance issues - - DVT prophylaxis - MAGNUS stockings - GI prophylaxis - not indicated - Nutrition - low sodium - Wren catheter - placed in the emergency room with acute urinary retention, failed voiding trial and has second catheter in place. Disposition - anticipate discharge home after the hospital stay Primary care physician - Shreya Moya, [facility]
[2017-10-30] MEDS: Tamsulosin 0.4 MG Cap.ER PO SCH (13:43)
[2017-10-30] MEDS: Bacitracin Oint 28.35 GM Tube TOP PRN ×2 (15:26→21:32)
[2017-10-30] MEDS ORDERED: Furosemide 40 MG/4 ML VIAL IVPUSH ONE (18:00)
[2017-10-31] MEDS: Carvedilol 6.25 MG Tab PO SCH (07:32)
[2017-10-31] MEDS: glipiZIDE 5 MG Tab PO SCH (07:32)
[2017-10-31] MEDS: Tamsulosin 0.4 MG Cap.ER PO SCH (08:41)
[2017-10-31] MEDS: metFORMIN 500 MG Tab.ER PO SCH (08:41)
[2017-10-31] MEDS: Aspirin 81 MG Tab.EC PO SCH (08:41)
[2017-10-31] MEDS: atorvaSTATin 20 MG Tab PO SCH (08:42)
[2017-10-31] MEDS: Clopidogrel 75 MG Tab PO SCH (08:42)
[2017-10-31] MEDS: Lisinopril 20 MG Tab PO SCH (08:42)
[2017-10-31] MEDS: amLODIPine 5 MG Tab PO SCH (08:42)
[2017-10-31] MEDS: Furosemide 40 MG/4 ML VIAL IVPUSH SCH (08:42)
[2017-10-31] MEDS: Nystatin Topical Powder 15 GM Bottle TOP SCH ×2 (09:00→14:23)
[2017-10-31] MEDS: Acetaminophen 325 MG Tab PO PRN (10:57)
[2017-10-31 11:06] VITALS: BP 104/57
--- NOTE | 2017-10-31 13:38 | PCM.DCSUM1 ---
Discharge Summary - Hospital Course Brief History: Mr. Robertson is a 67-year-old gentleman who was admitted through the emergency department with shortness of breath and severe peripheral edema secondary to fluid overload, unresponsive to outpatient management. - Discharge Data Discharge Date: 10/31/17 Discharge Disposition: Home, Self-Care 01 Condition: Fair - Discharge Diagnosis/Problem(s) (1) Fluid retention SNOMED Code(s): 13699073 ICD Code: R60.9 - EDEMA, UNSPECIFIED Status: Acute Current Visit: Yes (2) Combined congestive systolic and diastolic heart failure SNOMED Code(s): 83096925, 011797098 ICD Code: I50.40 - UNSP COMBINED SYSTOLIC AND DIASTOLIC (CONGESTIVE) HRT FAIL Status: Acute Current Visit: Yes Qualifiers: Heart failure chronicity: acute on chronic Qualified Code(s): I50.43 - Acute on chronic combined systolic (congestive) and diastolic (congestive) heart failure (3) Diabetes mellitus type II, controlled SNOMED Code(s): 28776296 ICD Code: E11.9 - TYPE 2 DIABETES MELLITUS WITHOUT COMPLICATIONS Status: Chronic Current Visit: Yes Qualifiers: Diabetes mellitus usp insulin use: without technician terminal and repeater use Diabetes mellitus complication status: with unspecified complications Qualified Code(s) : E11.8 - Type 2 diabetes mellitus with unspecified complications - Patient Summary/Data Hospital Course: Timi presents to the ER with 6 weeks of slowly progressive weight gain and shortness of breath with a more rapid decompensation over the last several days. He reports approximately a 20 pound weight gain over the past several weeks. He has become more and more short of breath, especially with activity. Last week he was started on supplemental oxygen after he was noted to be hypoxic at his clinic visit. He does not report orthopnea but he does sleep in a chair. He has noticed significant lower extremity edema which has progressed over the past 6 weeks and especially the past few days. He has bloating in his abdomen and early satiety. He reports that he has significantly reduced his sodium and alcohol intake without any improvement in the symptoms. He has not had any fevers. Diabetes has been well controlled per his report. He was seen in the clinic last week and the weight gain and hypoxia was noted. His furosemide was increased slightly but he has not had any improvement and has actually gotten worse since that time. Examination in the emergency room was suggestive of congestive heart failure. He is hypoxic and requiring supplemental oxygen. He will need admission for parenteral diuresis and additional workup including echocardiogram. He had a Wren catheter placed for acute urinary retention. On admission he was started on IV diuretic therapy with furosemide 80 mg twice daily, evening dose was held at times her decreased because of hypotension with diuresis. Over the course of his hospital stay he had an excellent diuresis of at least 9 L. With this his peripheral edema essentially resolved in the experienced improvement in shortness of breath, but continued to require supplemental oxygen. Echocardiogram showed borderline elevation in right-sided pressures, mild diastolic dysfunction, mild LVH, and ejection fraction of 50-55% . Likely that he does have some underlying pulmonary disease contributing to early right-sided heart failure and leading to fluid retention. Diabetes was managed with 4 times a day glucometers and sliding scale insulins in addition to his usual oral hypoglycemic meds. By the time of discharge was feeling significantly improved, he was instructed on the importance of following a strict 2 g sodium diet. Activity will be as tolerated and he will be on a diabetic 2 g sodium diet. Follow-up appointment will be scheduled with his primary care provider within one week, BMP should be obtained at the time of follow-up appointment. - Patient Instructions Diet: Low Sodium (2 g sodium diet) Activity: As Tolerated Other/Special Instructions: Please schedule follow-up appointment with primary care provider within one week, BMP should be obtained at the time of follow-up appointment. Please give the patient written information concerning a 2 g sodium diet. - Discharge Plan Prescriptions/Med Rec: Tamsulosin [Flomax] 0.4 mg PO [facility] #30 cap.er Home Medications: Home Meds Aspirin [Adult Low Dose Aspirin EC] 81 mg PO DAILY 08/03/15 [History] Lisinopril 40 mg PO DAILY 08/03/15 [History] amLODIPine [Norvasc] 5 mg PO DAILY 08/03/15 [History] glipiZIDE [Glipizide] 20 mg PO BID 08/03/15 [History] metFORMIN [Glucophage XR] 1,000 mg PO BID 08/03/15 [History] Carvedilol [Coreg] 6.25 mg PO BID 06/30/16 [History] Clopidogrel [Plavix] 75 mg PO DAILY 06/30/16 [History] atorvaSTATin [Lipitor] 40 mg PO DAILY 01/12/17 [History] Furosemide [Lasix] 80 mg PO DAILY #0 10/31/17 [Rx] Tamsulosin [Flomax] 0.4 mg PO PCBREAKFAST #30 cap.er 10/31/17 [Rx] Patient Handouts: Heart Failure Referrals: Shreya Ventura PA [Primary Care Provider] - - Discharge Summary/Plan Comment DC Time >30 min.: No - Patient Data Vitals - Most Recent: Last Vital Signs Temp 98 F 10/31/17 11:03 Pulse 87 10/31/17 11:06 Resp 16 10/31/17 11:03 BP 104/57 L 10/31/17 11:06 Pulse Ox 98 10/31/17 11:03 Weight - Most Recent: 247 lb 12.8 oz I&O - Last 24 hours: Intake & Output 10/30/17 10/31/17 10/31/17 22:59 06:59 14:59 Intake Total 480 Output Total 1793 327 1003 Balance -8927 -809 -938 Med Orders - Current: Current Medications Acetaminophen (Tylenol) 650 mg PO Q4H PRN PRN Reason: Pain (Mild 1-3)/fever Last Admin: 10/31/17 10:57 Dose: 650 mg Albuterol (Proventil Neb Soln) 2.5 mg NEB Q4H PRN PRN Reason: Shortness Of Breath/wheezing Amlodipine Besylate (Norvasc) 5 mg PO DAILY [facility] Last Admin: 10/31/17 08:42 Dose: 5 mg Aspirin (Halfprin) 81 mg PO DAILY [facility] Last Admin: 10/31/17 08:41 Dose: 81 mg Atorvastatin Calcium (Lipitor) 40 mg PO DAILY [facility] Last Admin: 10/31/17 08:42 Dose: 40 mg Bacitracin (Bacitracin Oint) 0 gm TOP TID PRN PRN Reason: Wound Care Last Admin: 10/30/17 21:32 Dose: 1 applic Carvedilol (Coreg) 6.25 mg PO BIDMEALS [facility] Last Admin: 10/31/17 07:32 Dose: 6.25 mg Clopidogrel Bisulfate (Plavix) 75 mg PO DAILY [facility] Last Admin: 10/31/17 08:42 Dose: 75 mg Furosemide (Lasix) 80 mg IVPUSH DAILY [facility] Last Admin: 10/31/17 08:42 Dose: 80 mg Glip[facility] (Glucotrol) [facility] Last Admin: 10/31/17 07:32 Dose: 20 mg Lisinopril (Prinivil) 40 mg PO DAILY [facility] Last Admin: 10/31/17 08:42 Dose: 40 mg Metformin HCl (Glucophage Xr) 1,000 mg PO BID [facility] Last Admin: 10/31/17 08:41 Dose: 1,000 mg Nystatin (Nystop) 0 gm TOP TID [facility] Last Admin: 10/31/17 09:00 Dose: 1 applic Ondansetron HCl (Zofran Odt) 4 mg PO Q6H PRN PRN Reason: Nausea able to take PO Polyethylene Glycol (Miralax) 17 gm PO DAILY PRN PRN Reason: Constipation Senna/Docusate Sodium (Senna Plus) 1 tab PO BID PRN PRN Reason: Constipation Tamsulosin HCl (Flomax) 0.4 mg PO PCBREAKFAST [facility] Last Admin: 10/31/17 08:41 Dose: 0.4 mg Discontinued Medications Albuterol (Proventil Neb Soln) 2.5 mg NEB ONETIME ONE Stop: 10/24/17 14:16 Last Admin: 10/24/17 15:07 Dose: 2.5 mg Carvedilol (Coreg) 6.25 mg PO BID [facility] Last Admin: 10/24/17 20:54 Dose: 6.25 mg Dimethicone/Zinc Oxide (Rash Relief-Zinc Oxide [place]) 0 gm TOP ASDIRECTED PRN PRN Reason: Rash Last Admin: 10/28/17 20:22 Dose: 1 applic Furosemide (Lasix) 80 mg IVPUSH NOW ONE Stop: 10/24/17 17:45 Last Admin: 10/24/17 18:42 Dose: 80 mg Furosemide 40 mg/ Furosemide (20 mg) 60 mg IV ONETIME ONE Stop: 10/25/17 09:01 Last Admin: 10/25/17 09:19 Dose: 60 mg Furosemide (Lasix) 40 mg IVPUSH DAILY [facility] Furosemide (Lasix) 40 mg IVPUSH ONETIME ONE Stop: 10/25/17 16:01 Last Admin: 10/25/17 16:33 Dose: 40 mg Furosemide (Lasix) 80 mg IVPUSH ONETIME ONE Stop: 10/27/17 15:01 Last Admin: 10/27/17 16:42 Dose: 80 mg Furosemide (Lasix) 80 mg IVPUSH ONETIME ONE Stop: 10/28/17 16:01 Last Admin: 10/28/17 17:39 Dose: Not Given Furosemide (Lasix) 60 mg IVPUSH ONETIME ONE Stop: 10/29/17 15:01 Last Admin: 10/29/17 16:00 Dose: 60 mg Furosemide (Lasix) 80 mg IVPUSH ONETIME ONE Stop: 10/30/17 18:01 Last Admin: 10/30/17 17:53 Dose: 80 mg Glipizide (Glucotrol) Confirm Administered Dose 20 mg .ROUTE .STK-MED ONE Stop: 10/24/17 21:36 Last Admin: 10/24/17 21:38 Dose: Not Given Sodium Chloride (Normal Saline) 80 mls @ 3.5 mls/sec IV ONETIME ONE Stop: 10/24/17 15:26 Last Admin: 10/24/17 15:58 Dose: 3.5 mls/sec Iopamidol (Isovue-370 (76%)) 85 ml IV . DIRECTED NOEMY Stop: 10/24/17 23:00 Last Admin: 10/24/17 15:58 Dose: 85 ml Pneumococcal Polyvalent Vaccine (Pneumovax 23) 0.5 ml IM .ONCE ONE Stop: 10/25/17 14:01 Last Admin: 10/25/17 14:13 Dose: 0.5 ml Sodium Chloride (Saline Flush) 10 ml FLUSH ONETIME ONE Stop: 10/24/17 15:26 Last Admin: 10/25/17 09:23 Dose: 10 ml - Exam General: Reports: Alert, Oriented, Cooperative, No Acute Distress Lungs: Reports: Clear to Auscultation, Normal Respiratory Effort Cardiovascular: Reports: Regular Rate, Regular Rhythm, No Murmurs GI/Abdominal Exam: Soft, Non-Tender, No Organomegaly, No Distention Extremities: Non-Tender, No Pedal Edema Skin: Reports: Warm, Dry, Intact
[2017-10-31] MEDS: Bacitracin Oint 28.35 GM Tube TOP PRN (14:23)
== END 2017-10-31 14:50 | disposition home or self-care (01) | DRG 292 ==
LOC: JP.ED 10:29 → JP.MS 17:45
PROVIDERS: ADMIT Internal Medicine; ATTEND Hospitalist
DX: I11.0 Hypertensive heart disease with heart failure (principal); E87.2 Acidosis; I50.43 Acute on chronic combined systolic (congestive) and diastolic (congestive) heart failure; Z66 Do not resuscitate; Z23 Encounter for immunization; R09.02 Hypoxemia; E11.9 Type 2 diabetes mellitus without complications; Z79.84 Long term (current) use of oral hypoglycemic drugs; R33.9 Retention of urine, unspecified; R06.02 Shortness of breath; M79.89 Other specified soft tissue disorders; Z87.891 Personal history of nicotine dependence; I25.10 Atherosclerotic heart disease of native coronary artery without angina pectoris; E66.9 Obesity, unspecified; Z68.38 Body mass index [BMI] 38.0-38.9, adult; I95.9 Hypotension, unspecified; E55.9 Vitamin D deficiency, unspecified; Z95.5 Presence of coronary angioplasty implant and graft; Z79.82 Long term (current) use of aspirin
CPT/HCPCS: 36415; 36600; 51702; 51798; 71046 ×2; 71275; 80053; 81001; 82803; 83880; 84443; 85025; 93005; 94640; 99284; 99285; J7030; J7050; Q9967; 80048; 82962; 83735; 85027; 90732; 93010; 93306; A9270-GY; J1940